=== PATIENT | female | born 1950 | race Caucasian/White ===

== ENCOUNTER → 2016-06-13 | Outpatient (CLI) | payer OTHER ==
--- NOTE | 2016-06-13 20:30 | REP ---
Whole body PET CT scan: New the patient has multiple mesenteric lymph nodes are recent CT abdomen and pelvis. This is 05/25/2016). Whole body PET CT scan is performed from skull base to the upper thighs. There are no comparison PET CT scans. Neck and supraclavicular areas: There are no hypermetabolic foci. Chest: There are no hypermetabolic foci. Abdomen, pelvis and upper thighs: There is a hypermetabolic focus along the anterior peritoneum just superior and right lateral to the umbilicus along the posterior medial margin of the right rectus abdominus muscle, with a standard uptake value of 7.4, compatible with neoplasm. This may represent a peritoneal implant. There is a small hypermetabolic focus in the right lower quadrant of the pelvis involving a tubular structure within maximal standard uptake value measuring 9.7, compatible with neoplasm. This uptake could be within the appendix, right fallopian tube or a loop of small bowel. There are no other hypermetabolic foci in the abdomen and pelvis or thighs. The study is performed with 8.3 mCi of F 18 FDG. Signed by Fran Villalobos MD 06/13/2016 08:17 P
== END | disposition home or self-care (01) ==
LOC: M RAD 14:31
PROVIDERS: ATTEND Internal Medicine
DX: C85.16 Unspecified B-cell lymphoma, intrapelvic lymph nodes (principal)
CPT/HCPCS: 78815; A9552

== ENCOUNTER → 2016-06-15 | Outpatient (REF) | payer OTHER ==
[2016-06-15 13:06] LABS: AMYLASE 34 U/L (25-115); GAMMA GLUTAMYLTRANSPEPTIDASE 16 U/L (5-55)
[2016-06-15 13:20] LABS: INR 0.92
[2016-06-15 13:33] LABS: CARCINOEMBRYONIC ANTIGEN < 0.5 NG/ML (<2.5)
== END | disposition home or self-care (01) ==
LOC: M LAB REF 12:47
PROVIDERS: ATTEND Internal Medicine Medical Oncology
DX: I88.0 Nonspecific mesenteric lymphadenitis (principal)

== ENCOUNTER → 2016-06-26 | Outpatient (CLI) | payer OTHER ==
[~2016-06-26] MED LIST: ACETAMINOPHEN 325 MG TAB As Ordered ONE; LIDOCAINE 1% MDV 20ML VIAL As Ordered ONE
--- NOTE | 2016-06-26 19:32 | REP ---
ULTRASOUND GUIDED RIGHT ABDOMINAL MESENTERIC NODULE BIOPSY: The procedure was performed under the direct supervision of Dr. Valladares. The patient has a history of a hypermetabolic focus along the anterior peritoneum just superior and right lateral to the umbilicus seen on a previous PET scan dated 06/13/2016. The risks and benefits of the procedure were explained to the patient and informed consent was obtained. The nodule was localized ultrasound guidance. The skin was prepped and draped in a sterile fashion. 1% Lidocaine was used as a local anesthetic. Using ultrasound guidance a 19/20-gauge coaxial needle biopsy system was inserted and advanced into the nodule. 6 core biopsy samples were obtained and sent to the lab. The patient tolerated the procedure well and there were no immediate complications. After the appropriate amount of monitored convalesce the patient was discharged from the department. Reviewed by NIKO Fletcher 06/27/2016 02:10 PEdited and Signed by Clemente Valladares MD 06/27/2016 02:25 P
== END ==
LOC: M RADPRO 09:03
PROVIDERS: ATTEND Internal Medicine
DX: R59.0 Localized enlarged lymph nodes (principal)

== ENCOUNTER → 2016-07-12 | Outpatient (REF) | payer OTHER | LOC: M LAB REF 13:19 | PROVIDERS: ATTEND Internal Medicine Medical Oncology | DX: C82.93 Follicular lymphoma, unspecified, intra-abdominal lymph nodes (principal); C85.10 Unspecified B-cell lymphoma, unspecified site; R19.09 Other intra-abdominal and pelvic swelling, mass and lump ==

== ENCOUNTER → 2016-07-19 | Outpatient (CLI) | payer OTHER ==
--- NOTE | 2016-07-21 10:58 | ECHO ---
DATE OF PROCEDURE: 07/19/2016 REFERRING PHYSICIAN: Ace Molina MD PATIENT LOCATION: Outpatient REASON FOR ECHOCARDIOGRAM: Chemotherapy drug monitoring. 2D MEASUREMENTS: IVS: 1.0 cm LV: 4.3 cm LVPW: 0.9 cm LA: 2.5 cm Aorta: 3.4 cm DOPPLER MEASUREMENTS: Peak velocity across the aortic valve: 1.0 m/s Peak velocity across the LVOT: 0.81 m/s Mitral E: 0.41, Mitral A: 0.51, with a ratio of 0.8 2D COMMENTS: 1. Normal left ventricular size, wall thickness and normal global left ventricular systolic function with an estimated left ventricular ejection fraction (LVEF) of 60 to 65%. 2. Normal left atrium. Normal right atrium and right ventricle. There was an echogenic structure noted in the right atrium of about 1.7 x 1.0 cm from unclear etiology, but may represent a thrombus attached to an IV access port if any, or a vegetation. 3. The atrial septum appeared to be normal without evidence of defect or shunt. 4. Normal aortic root. 5. Small pericardial effusion noted, no evidence of cardiac tamponade. 6. Normal aortic valve. Mildly calcified mitral annulus with normal anterior mitral valve leaflet motion. Normal tricuspid valve and pulmonic valve. The proximal pulmonary artery branches were not well visualized. 7. The inferior vena cava was not visualized. DOPPLER: Only trace mitral regurgitation detected. Abnormal relaxation pattern was noted across the mitral valve leaflets as well as the mitral valve annulus consistent with a delayed relaxation. IMPRESSION: 1. Normal global left ventricular systolic function. There are some features of left ventricular diastolic dysfunction, grade 1. 2. Mitral annulus calcification with trace mitral regurgitation. 3. Small pericardial effusion noted, no evidence of cardiac tamponade. 4. An echogenic structure was noted in the right atrium that could represent as mentioned above a thrombus or a vegetation, or a small tumor and therefore patient will benefit from a transesophageal echocardiogram for further evaluation.
== END ==
LOC: M CARPUL 10:57
PROVIDERS: ATTEND Internal Medicine Medical Oncology
DX: Z79.899 Other long term (current) drug therapy (principal)

== ENCOUNTER → 2016-07-25 | Outpatient (REF) | payer OTHER ==
[2016-07-25 14:34] LABS: URIC ACID 4.2 MG/DL (2.6-6.0)
[2016-07-25 14:44] LABS: HEPATITIS B SURFACE ANTIBODY NEGATIVE (POSITIVE)
== END ==
LOC: M LAB REF 13:14
PROVIDERS: ATTEND Internal Medicine Medical Oncology
DX: C85.90 Non-Hodgkin lymphoma, unspecified, unspecified site (principal); Z11.59 Encounter for screening for other viral diseases

== ENCOUNTER → 2016-08-13 | Outpatient (REF) | payer OTHER | LOC: M LAB REF 12:54 | PROVIDERS: ATTEND Internal Medicine | DX: R39.15 Urgency of urination (principal) ==

== ENCOUNTER → 2016-08-23 | Outpatient (REF) | payer OTHER ==
[~2016-08-23] MED LIST changes: -ACETAMINOPHEN 325 MG TAB As Ordered ONE; +ATOR1TAB19 PO; +BIOT10005 PO; +CALTCHW5 PO; +GAS-80CH PO; -LIDOCAINE 1% MDV 20ML VIAL As Ordered ONE; +LISI-538 PO; +METO-207 PO; +MIRA3350 PO; +OMEP40CA2 PO; +ONDA4TAB6 PO; +PROC10TA PO; +PROC25SU24 PO; +PROM25TA PO; +VITA-121 PO; +XANA0.25 PO
[2016-08-23 19:13] LABS: INR 0.96
== END ==
LOC: M LAB REF 16:39
PROVIDERS: ATTEND Internal Medicine Medical Oncology
DX: C82.90 Follicular lymphoma, unspecified, unspecified site (principal)

== ENCOUNTER 2016-08-25 11:53 | Inpatient (IN) | payer OTHER ==
[~2016-08-25] VITALS: Ht 165.1 cm; Wt 57.9 kg
[2016-08-25] MEDS: MIRALAX *UNIT DOSE* 17GM PACKET PO SCH (09:00)
[2016-08-25] MEDS: VITAMIN D 1,000 INTERNATIONAL UNITS TABLET PO SCH (09:00)
[2016-08-25] MEDS ORDERED: NS 1,000 ML IV SCH (12:25)
[2016-08-25] MEDS ORDERED: ONDANSETRON 4MG/2ML VIAL (J2405) IV ONE (12:30)
[2016-08-25 12:51] LABS: DIFF SLIDE NUMBER 114; MEAN CORPUSCULAR HEMOGLOBIN 32.3 pg (27.0-33.0); MEAN CORPUSCULAR VOLUME 94.9 fl (80.0-96.0); PLATELET COUNT, AUTOMATED 312 k/mm3 (150-450); RED CELL DISTRIBUTION WIDTH 12.6 % (11.5-14.5)
[2016-08-25 12:54] LABS: WHITE BLOOD COUNT 36.9 K/mm3 (4.0-10.0)
[2016-08-25] MEDS ORDERED: ALPRAZolam 0.25 MG TAB PO ONE (13:00)
[2016-08-25 13:05] LABS: BANDS 8 % (< 11); TOXIC VACUOLATION 1+
[2016-08-25 13:09] LABS: ALKALINE PHOSPHATASE 75 U/L (45-117); ALT/SGPT 20 U/L (12-78); ANION GAP 10 MEQ/L (8-16); AST/SGOT 17 U/L (15-37); BILIRUBIN,TOTAL 0.5 MG/DL (0.2-1.0); BLOOD UREA NITROGEN 13 MG/DL (7-18); CALCIUM LEVEL 8.8 MG/DL (8.8-10.2); CARBON DIOXIDE LEVEL 27 MEQ/L (21-32); CHLORIDE LEVEL 98 MEQ/L (98-107); GLOMERULAR FILTRATION RATE 59.2 (>45); GLUCOSE, FASTING 90 MG/DL (80-110); POTASSIUM SERUM 3.6 MEQ/L (3.5-5.1); SODIUM LEVEL 135 MEQ/L (136-145)
[2016-08-25] MEDS ORDERED: VITA-121 PO (13:09)
[2016-08-25] MEDS ORDERED: ATOR1TAB19 PO (13:09)
[2016-08-25] MEDS ORDERED: LISI-538 PO (13:09)
[2016-08-25] MEDS ORDERED: ONDA4TAB6 PO (13:09)
[2016-08-25] MEDS ORDERED: METO-207 PO (13:09)
[2016-08-25] MEDS ORDERED: XANA0.25 PO (13:09)
[2016-08-25] MEDS ORDERED: OMEP40CA2 PO (13:09)
[2016-08-25] MEDS ORDERED: CALTCHW5 PO (13:09)
[2016-08-25] MEDS ORDERED: PROC25SU24 PO (13:09)
[2016-08-25] MEDS ORDERED: BIOT10005 PO (13:09)
[2016-08-25 13:10] LABS: ALBUMIN 3.5 GM/DL (3.2-5.2); ALBUMIN/GLOBULIN RATIO 0.97 (1.00-1.93); BILIRUBIN,DIRECT < 0.1 MG/DL (0.0-0.2); TOTAL PROTEIN 7.1 GM/DL (6.4-8.2)
[2016-08-25] MEDS ORDERED: GASTROGRAFIN SOLUTION 30ML (Q9963) As Ordered ONE (13:22)
[2016-08-25] MEDS: GASTROGRAFIN SOLUTION 30ML PO ONE ×2 (13:30→14:09)
[2016-08-25] MEDS ORDERED: GASTROGRAFIN SOLUTION 30ML (Q9963) PO ONE (14:00)
[2016-08-25] MEDS ORDERED: ISOVUE-370 76% 100ML VIAL (Q9967) As Ordered ONE (14:47)
--- NOTE | 2016-08-25 15:22 | REP ---
Clinical: Epigastric and left lower quadrant pain. Technique: Axial contrast enhanced images from the lung bases to the pubic symphysis using oral and 100 ml Isovue 370 intravenous contrast material with coronal and sagittal re-formations. Comparison: 05/25/2016, 04/26/2016. Findings: Lung bases are clear. Visualized heart and pericardium normal. Liver, spleen, pancreas, bilateral adrenal glands and kidneys are within normal limits. The patient is status post cholecystectomy. The enteric system is without obstruction or acute inflammatory process. Pelvis demonstrates normal bladder and mildly prominent heterogeneous uterus and adnexa which may reflect underlying myomatous changes. No ascites. No free air. No adenopathy. Vasculature is normal. Musculoskeletal structures demonstrate age-related degenerative changes without focal osseous abnormality. Impression: 1. No acute intra-abdominal or pelvic pathology appreciated. 2. No free fluid. No adenopathy. 3. Mildly prominent heterogeneous uterus may reflect underlying ill-defined myomatous changes. Signed by Zach Bell MD 08/25/2016 03:14 P
[2016-08-25] MEDS ORDERED: MIRA3350 PO (16:01)
[2016-08-25] MEDS ORDERED: GAS-80CH PO (16:01)
[2016-08-25] MEDS ORDERED: PROC10TA PO (16:01)
[2016-08-25] MEDS: NS 1,000 ML IV SCH (17:20)
[2016-08-25] MEDS ORDERED: SIMETHICONE 80 MG CHEW TAB PO PRN (17:30)
[2016-08-25] MEDS ORDERED: ALPRAZolam 0.25 MG TAB PO PRN (17:30)
[2016-08-25] MEDS ORDERED: ACETAMINOPHEN TAB 650MG DOSE (2X325MG) PO PRN (17:30)
[2016-08-25] MEDS ORDERED: ONDANSETRON 4MG/2ML VIAL (J2405) IV PRN (17:30)
[2016-08-25] MEDS ORDERED: METOCLOPRAMIDE INJ 10MG/2ML VIAL (J2765) IV PRN (17:30)
--- NOTE | 2016-08-25 18:38 | ECGEPIP ---
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
[2016-08-25 18:42] VITALS: BP 160/80
--- NOTE | 2016-08-25 19:00 | HPEPDOC ---
General Date of Admission Aug 25, 2016 at 17:55 Primary Care Physician: GILBERTO TAYLOR DO Attending Physician: GUSTAVO PHILIP DO Chief Complaint The patient is a 65-year-old female admitted with a reason for visit of Chemotherapy Induced N/V. Source: Patient, Family Exam Limitations: Other (dizziness) Timing/Duration: Day(s) (3) Severity: Moderate Associated Symptoms: Chills, Loss of appetite, Nausea, Vomiting History of Present Illness PRIMARY CARE PROVIDER: Dr. Gilberto Taylor [facility] internists [facility] Nurse Practitioners on [facility] Oncology group at [facility] Dr. 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 States she had her first chemotherapy treatment on Saturday and was fine after she came back home. On , she had her second treatment for chemotherapy, she came home, ate something, immediately went to bed after taking Zofran and prochlorperazine.. However, she began to have uncontrollable vomiting despite the anti-emetics that she had taken. States that she had 5-6 episodes of vomiting in a row at a time and this occurred at least 3 times on . On Saturday, she was vomiting all day and all night every 2-3 hours for 3-4 times at a time. She did not sleep well on Saturday night due to vomiting. Last time that she had vomited was this morning which was only 1 episode today. States that her stomach hurts from forceful vomiting. She also admits to a >30 pounds weight loss recently. In addition, she admits to dry heaves and nausea at this time. She admits to a 3 pound weight loss since Saturday. Then, she came to [facility] ED around noon to be evaluated. Upon review of systems, patient denies fever, headache, sore throat, mucus, blurred vision, chest pain, abdominal pain, diarrhea, hematochezia, hematuria urea, swelling, rashes, lesions. Admits to chills from lymphoma and shaking, greater than 30 pound weight loss, weakness, fatigue, loss of appetite, dizziness when sitting up or standing up, runny nose 1 month, sneezing, itching in the back due to lymphoma, constipation, and shortness of breath. Admits to having to strain due to constipation. Admits to dizziness when getting up slowly from a lying position. Admits to nausea when moving and talking a lot. Admits to a one-year history of shortness of breath when getting out of bed and climbing up the stairs. She also states that shortness of breath is from fatigue from lymphoma. She also admits to a urinary tract infection recently for which she has just finished 10 days of an antibiotic that she notes to be nitrofurantoin. ALLERGIES: Codeine: Abdominal pain and vomiting Morphine sulfate: Severe vomiting and abdominal pain PAST MEDICAL HISTORY: Non-Hodgkin's lymphoma status post chemotherapy on 08/22 and 08/23: Cancer at right side of pelvis and underneath right rib cage as per patient Left breast DCIS with radiation but no chemotherapy Hypertension Hyperlipidemia Moderate sleep apnea not on CPAP due to noncompliance Suspicious mole with abnormal features which needs to be excised Broken left collarbone PAST SURGICAL HISTORY/PROCEDURES: Left breast lumpectomy Cholecystectomy Appendectomy Back surgery-infusion Cone biopsy negative Colonoscopy 2003, 11/16/2011: sigmoid diverticulosis and non-bleeding internal hemorroids Abdominal and bone marrow biopsy Hx of Echocardiogram 07/19/26: Normal LVEF and function, grade 1 diastolic dysfunction, and echogenic structure in R atrium that could represent thrombus or vegetation or small tumor. MEDICATIONS: Please see below. SOCIAL HISTORY: Lives at home with . 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 Lifelong nonsmoker EtOH: Use is socially drink, quit March 2016 No illicit drug use No exposure to asbestos dose No exposure to tuberculosis No pets FAMILY HISTORY: 1 brother, 5 sisters, 3 sons Father: Alive 90 years, CHF, hypertension, history of prostate cancer, thyroidectomy Mother: Alive 88 years, osteoarthritis, Xigris disease, hypertension Youngest sister: Diagnosed with breast cancer at age 47 Another sister: Minor thalassemia, atrial fibrillation, fibromyalgia, COPD Sister: Celiac disease, hypertension 2 sisters: Minor thalassemia 2 sisters: Fibromyalgia One sister with heart problems Sister with celiac disease No family history of ovarian or colon cancer. Son: Non-cancerous tumor on thoracic spine age 23 CODE STATUS: FULL CODE REVIEW OF SYSTEMS: All other review of systems were negative except for those stated in HPI above. PHYSICAL EXAMINATION: Vitals: T: 97.2, BP: 145/79, RR: 18, P: 82, O2 Saturation: 96% room air General: Pleasant and cooperative adult female lying in bed comfortably in no acute distress. Non-toxic and non-ill appearing. HEENT: Head: normocephalic, atraumatic. Eyes: sclera are nonicteric. Nose: No external lesions Throat: no pharyngeal erythema or exudates, moist buccal mucosa Neck: Supple. No cervical lymphadenopathy bilaterally. No thyromegaly. Respiratory: clear to auscultation bilaterally with no wheezes, rales, or rhonchi. Cardiovascular: regular rate and rhythm, with no murmurs, rubs or gallops. Abdomen: soft, nontender, nondistended, no hepatosplenomegaly appreciated. Bowel sounds present. Extremities: No lower extremity edema bilaterally. Neurological: No focal neurologic deficits appreciated bilaterally. Integumentary: Positive brown macular mole on the left upper back. No other rashes or lesions noted. Vascular: +2 radial and dorsalis pedis pulses palpable bilaterally. LABORATORY DATA: Please see below. White blood cell count: 36.9 Hemoglobin: 11.8 Hematocrit: 34.8 Sodium: 135 Neutrophils: 86 Luis Angel neutrophils: 8 Lymphocytes: 3 Toxic vacuolation: 1+ Sodium: 135 Lactic acid: 1.3 MICROBOIOLOGY: Blood cultures and urine cultures pending. ELECTROCARDIOGRAM: Sinus rhythm with nonspecific T-wave abnormality. Ventricular rate: 70 bpm RI interval: 193 ms QRS duration: 94 ms QTc interval: 430 ms RADIOLOGY: CT scan of the abdomen/pelvis with IV and oral contrast: No acute intra- abdominal or pelvic pathology. No free fluid. No adenopathy. Mildly prominent heterogeneous uterus may reflect underlying ill-defined mild myomatous changes. 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 She is admitted for unrelenting and uncontrollable vomiting and intolerance to by mouth intake 3 days most likely secondary to recent chemotherapy. Patient also has leukocytosis. PLAN: Intractable nausea/vomiting related to chemotherapy: Admitted to the medical surgical floor. We'll continue with supportive treatment: IV fluids with normal saline at 150 mL per hour. Anti-medics: IV Zofran, IV Reglan, and Phenergan IV. We'll hold all blood pressure medications at this time with hold parameters: metoprolol and lisinopril. Leukocytosis: White blood cell count of 36.9. We'll obtain blood cultures, urinalysis, and urine cultures and sensitivity. Patient is afebrile at this moment. There are no obvious signs of infection. This could be secondary to stress of chemotherapy treatment. Of note, patient reports she had a recent urinary tract infection which was treated with nitrofurantoin for 10 days and she just finished this. Non-Hodgkin's lymphoma: Continue current management. As per Dr. Molina. Hypertension: Continue BP medications with hold parameters of SBP <110 and HR < 60 as patient having volume loss through vomiting and her pressures are soft. Hyperlipidemia: Continue atorvastatin. History of breast cancer: Patient states that she had a mammogram in February 2016 visit does not show anything. In addition, she had gone to have PET scan [facility] which was negative. In addition, she had gone to [facility] for second opinion who she states recommended for her to have another follow-up. She has an appointment on September 17 for a 3 day mammography at [facility] for ultrasound and 3D mammogram there. Far as per recommendations for PCP and Dr. Molina. History of echocardiogram 07/19/2016 for chemotherapy drug monitoring: Normal left ventricular size, wall thickness, normal global left ventricular systolic function with estimated left ventricular ejection fraction of 60-65%. In addition, it showed left ventricular grade 1 diastolic dysfunction and trace mitral regurgitation. It also noted an echogenic structure in the right atrium that could represent thrombus or vegetation or a small tumor and therefore the patient may benefit from a transesophageal echocardiogram for further evaluation. Upon record review, it does not seem the patient had a TTE and this should be considered while patient is hospitalized. History of colonoscopy 11/16/[address] Chano Glass: Nonbleeding internal hemorrhoids found during retroflexion and were small. A few mouth small mouth diverticula were found in the rectal sigmoid colon and in the sigmoid colon. Exam otherwise without abnormality. Diverticulosis in the sigmoid colon. High fiber diet was recommended and repeat colonoscopy in 5-10 years for surveillance. Continue home medications. DVT prophylaxis: Lovenox 40 mg subcutaneous daily. FULL CODE STATUS Immunizations as per protocol. My preceptor for this patient encounter was Dr. Gustavo Philip, and was physically present in the building during the encounter and was fully available. As needed, all aspects of the patient interview, examination, medical decision making process, and medical care plan development were reviewed and approved by the preceptor. Preceptor is aware and concurs with the plan as stated in the body of this note and will attest to such by his/her cosignature. Home Medications Scheduled (Caltrate 600+D 600-400 mg-Unit) 1 Chw Chw 1 TAB PO BID (Reported) Atorvastatin Calcium (Atorvastatin Calcium) 10 Mg Tab 10 MG PO QHS (Reported) Biotin (Vitamin H) (Biotin) 1,000 Mcg Tab 1,000 MCG PO DAILY (Reported) Cholecalciferol (Vitamin D-3) 1,000 Unit Tab 1,000 UNIT PO DAILY (Reported) Lisinopril (Lisinopril) 20 Mg Tab 20 MG PO DAILY (Reported) Metoprolol Succinate (Metoprolol Succinate ER) 50 Mg Tab 50 MG PO DAILY ( Reported) Omeprazole (Omeprazole) 40 Mg Cap 40 MG PO QHS (Reported) Scheduled PRN Alprazolam (Xanax) 0.25 Mg Tab 0.25 MG PO ASDIRECTED PRN PRN ANXIETY/AGITATION ( Reported) PRIOR TO SCANS Ondansetron (Ondansetron Odt) 4 Mg Tab 4 MG PO Q6H PRN PRN NAUSEA (Reported) Polyethylene Glycol (Miralax) 1 Pow Pow 17 GM PO DAILY PRN PRN CONSTIPATION ( Reported) Prochlorperazine Maleate (Prochlorperazine Maleate) 10 Mg Tab 10 MG PO Q8H PRN PRN NAUSEA (Reported) Simethicone (Gas-X) 80 Mg Chw 80 MG PO PRN PRN PRN GAS PAIN (Reported) Allergies Coded Allergies: Codeine (Verified Allergy, Unknown, 08/29/12) Morphine (Verified Allergy, Unknown, 08/29/12) Vital Signs As above. Laboratory Data Labs 24H Laboratory Tests 2 08/25/16 12:37: Aspartate Amino Transf (AST/SGOT) 17, Alanine Aminotransferase (ALT/SGPT) 20, Alkaline Phosphatase 75, Total Bilirubin 0.5, Direct Bilirubin < 0.1, Albumin 3.5, Albumin/Globulin Ratio 0.97L, Anion Gap 10, Band Neutrophils 8, Calcium Level 8.8, Creatine Kinase MB 1.0, Creatine Kinase MB Relative Index 2.77, Glomerular Filtration Rate 59.2, Lactic Acid Level 1.3, Lipase 59L, Lymphocytes (Manual) 3L, Monocytes (Manual) 3, Neutrophils 86H, Platelet Estimate NORMAL, Red Blood Cell Morphology NORMAL, Total Creatine Kinase 36, Total Protein 7.1, Toxic Vacuolation 1+, Troponin I < 0.02 CBC/BMP Laboratory Tests 08/25/16 12:37 Red Blood Count 3.66 L, Mean Corpuscular Volume 94.9, Mean Corpuscular Hemoglobin 32.3, Mean Corpuscular Hemoglobin Concent 34.0, Red Cell Distribution Width 12.6 Plan / VTE VTE Prophylaxis Ordered?: Yes (lovenox sc 40 mg daily) Plan Disposition Attending Note: Patient seen and independently examined. Discussed at length with resident regarding treatment plan. Agree with plan outlined above. FRANCISCO PATEL OGME-1 Aug 25, 2016 19:00 GUSTAVO PHILIP DO Aug 26, 2016 13:22
[2016-08-25] MEDS: OMEPRAZOLE 20 MG CAP PO SCH (21:00)
[2016-08-25] MEDS: ATORVASTATIN 10 MG TAB PO SCH (21:00)
[2016-08-25] MEDS: LISINOPRIL 20 MG TAB PO SCH (21:02)
[2016-08-25] MEDS: ENOXAPARIN 40 MG/0.4 ML SYRINGE (J1650) SC SCH (21:03)
[2016-08-25] MEDS: METOPROLOL SUCC (TopROL XL) 50MG **XL** TAB PO SCH (21:03)
[2016-08-25 22:00] VITALS: BP 128/70
[2016-08-26] MEDS: PROMETHAZINE INJ 25 MG/ML VIAL (J2550) IM PRN ×2 (00:04→08:31)
[2016-08-26] MEDS: NS 1,000 ML IV SCH ×4 (01:54→20:40)
[2016-08-26 06:00] VITALS: BP 127/73
[2016-08-26 06:37] LABS: MEAN CORPUSCULAR HEMOGLOBIN 32.5 pg (27.0-33.0); MEAN CORPUSCULAR HGB CONC 33.8 g/dl (32.0-36.5); MEAN CORPUSCULAR VOLUME 96.2 fl (80.0-96.0); RED CELL DISTRIBUTION WIDTH 12.8 % (11.5-14.5); WHITE BLOOD COUNT 29.7 K/mm3 (4.0-10.0)
[2016-08-26 06:46] LABS: ANION GAP 7 MEQ/L (8-16); BLOOD UREA NITROGEN 9 MG/DL (7-18); CALCIUM LEVEL 7.9 MG/DL (8.8-10.2); CARBON DIOXIDE LEVEL 28 MEQ/L (21-32); CHLORIDE LEVEL 104 MEQ/L (98-107); CREATININE FOR GFR 0.84 MG/DL (0.55-1.02); GLOMERULAR FILTRATION RATE > 60.0 (>45); GLUCOSE, FASTING 68 MG/DL (80-110); POTASSIUM SERUM 3.4 MEQ/L (3.5-5.1); SODIUM LEVEL 139 MEQ/L (136-145)
[2016-08-26] MEDS: MIRALAX *UNIT DOSE* 17GM PACKET PO SCH (08:31)
[2016-08-26] MEDS: VITAMIN D 1,000 INTERNATIONAL UNITS TABLET PO SCH (08:31)
[2016-08-26] MEDS: ENOXAPARIN 40 MG/0.4 ML SYRINGE (J1650) SC SCH (08:32)
[2016-08-26] MEDS: METOPROLOL SUCC (TopROL XL) 50MG **XL** TAB PO SCH (08:32)
[2016-08-26] MEDS: LISINOPRIL 20 MG TAB PO SCH (08:32)
--- NOTE | 2016-08-26 12:37 | IPNPDOC ---
Subjective Date Seen The patient was seen on 08/26/16. Subjective Chief Complaint/HPI The patient is a 65-year-old female admitted with a reason for visit of Chemotherapy Induced N/V. Constitutional: Denies: Chills, Fever, Night Sweats Gastrointestinal: Reports: Nausea Objective Physical Examination General Exam: Positive: Alert, No Acute Distress ENT Exam: Positive: Atraumatic, Mucous membr. moist/pink Chest Exam: Positive: Clear to auscultation, Normal air movement Heart Exam: Positive: Normal S1, Normal S2, Rate Normal, Regular Rhythm, Negative: Murmurs, Rubs Abdomen Exam: Positive: Normal bowel sounds, Soft, Negative: Hepatospenomegaly, Tenderness Extremity Exam: Positive: Normal pulses, Negative: Clubbing, Cyanosis, Edema Assessment /Plan Problems (1) Chemotherapy induced nausea and vomiting Status: Acute Problem Text: * continue Phenergan * zofran is not helping pt's symptom (2) Lymphoma, non-Hodgkin's Status: Acute (3) HTN (hypertension) Status: Chronic Response to Treatment: Stable (4) HLD (hyperlipidemia) Status: Chronic Response to Treatment: Stable (5) Hypokalemia Status: Acute Plan/VTE VTE Prophylaxis Ordered?: Yes (lovenox sc 40 mg daily) VS[facility] Vital Signs/I&O Vital Signs Date Time Temp Pulse Resp B/P Pulse Ox O2 Delivery O2 Flow Rate FiO2 08/26/16 08:32 127/73 08/26/16 06:00 99.8 96 18 97 Room Air I&O- Last 24 Hours up to 6 AM 08/26/16 06:00 Intake Total 300 ml Output Total 400 ml Balance -100 ml Laboratory Data 24H LABS Laboratory Tests 2 08/25/16 12:37: Aspartate Amino Transf (AST/SGOT) 17, Alanine Aminotransferase (ALT/SGPT) 20, Alkaline Phosphatase 75, Total Bilirubin 0.5, Direct Bilirubin < 0.1, Albumin 3.5, Albumin/Globulin Ratio 0.97L, Anion Gap 10, Band Neutrophils 8, Calcium Level 8.8, Creatine Kinase MB 1.0, Creatine Kinase MB Relative Index 2.77, Glomerular Filtration Rate 59.2, Lactic Acid Level 1.3, Lipase 59L, Lymphocytes (Manual) 3L, Monocytes (Manual) 3, Neutrophils 86H, Platelet Estimate NORMAL, Red Blood Cell Morphology NORMAL, Total Creatine Kinase 36, Total Protein 7.1, Toxic Vacuolation 1+, Troponin I < 0.02 08/26/16 06:12: Anion Gap 7L, Calcium Level 7.9L, Glomerular Filtration Rate > 60.0, Blood Urea Nitrogen 9, Creatinine 0.84, Sodium Level 139, Potassium Level 3.4L, Chloride Level 104, Carbon Dioxide Level 28 CBC/BMP Laboratory Tests 08/25/16 12:37 Red Blood Count 3.66 L, Mean Corpuscular Volume 94.9, Mean Corpuscular Hemoglobin 32.3, Mean Corpuscular Hemoglobin Concent 34.0, Red Cell Distribution Width 12.6 08/26/16 06:12 Red Blood Count 3.10 L, Mean Corpuscular Volume 96.2 H, Mean Corpuscular Hemoglobin 32.5, Mean Corpuscular Hemoglobin Concent 33.8, Red Cell Distribution Width 12.8, Calcium Level 7.9 L Microbiology Microbiology 08/25/16 Blood Culture, Received Pending TEX OJEDA DO Aug 26, 2016 12:37
[2016-08-26] MEDS ORDERED: POTASSIUM CHLORIDE 10 MEQ SR TABLET PO ONE (12:45)
[2016-08-26] MEDS ORDERED: PROMETHAZINE 25 MG TAB PO PRN (13:00)
[2016-08-26] MEDS: ATORVASTATIN 10 MG TAB PO SCH (20:40)
[2016-08-26] MEDS: OMEPRAZOLE 20 MG CAP PO SCH (20:40)
[2016-08-26 22:00] VITALS: BP 128/59
[2016-08-27] MEDS: NS 1,000 ML IV SCH (02:40)
[2016-08-27 06:00] VITALS: BP 116/55
[2016-08-27 07:20] LABS: MEAN CORPUSCULAR HEMOGLOBIN 31.7 pg (27.0-33.0); MEAN CORPUSCULAR HGB CONC 32.8 g/dl (32.0-36.5); MEAN CORPUSCULAR VOLUME 96.8 fl (80.0-96.0); RED CELL DISTRIBUTION WIDTH 13.1 % (11.5-14.5); WHITE BLOOD COUNT 29.3 K/mm3 (4.0-10.0)
[2016-08-27 07:34] LABS: ANION GAP 8 MEQ/L (8-16); BLOOD UREA NITROGEN 7 MG/DL (7-18); CALCIUM LEVEL 7.6 MG/DL (8.8-10.2); CARBON DIOXIDE LEVEL 27 MEQ/L (21-32); CHLORIDE LEVEL 107 MEQ/L (98-107); CREATININE FOR GFR 0.74 MG/DL (0.55-1.02); GLOMERULAR FILTRATION RATE > 60.0 (>45); GLUCOSE, FASTING 63 MG/DL (80-110); POTASSIUM SERUM 3.9 MEQ/L (3.5-5.1); SODIUM LEVEL 142 MEQ/L (136-145)
[2016-08-27 08:35] VITALS: BP 116/55
[2016-08-27] MEDS: LISINOPRIL 20 MG TAB PO SCH (08:35)
[2016-08-27] MEDS: METOPROLOL SUCC (TopROL XL) 50MG **XL** TAB PO SCH (08:35)
[2016-08-27] MEDS ORDERED: LIDOCAINE W/EPINEPHRINE 1% 20ML VIAL As Ordered ONE (12:55)
[2016-08-27] MEDS ORDERED: LIDOCAINE 2% MDV 20 ML VIAL As Ordered ONE (12:55)
[2016-08-27] MEDS ORDERED: SODIUM BICARBONATE 8.4% INJ 50MEQ 50 ML VIAL As Ordered ONE (12:55)
[2016-08-27] MEDS ORDERED: ceFAZolin 1GM INJ (J0690) As Ordered ONE (12:57)
[2016-08-27] MEDS ORDERED: PROM25TA PO (13:50)
[2016-08-27] MEDS ORDERED: ONDANSETRON 4MG/2ML VIAL (J2405) IV PRN (14:45)
[2016-08-27] MEDS ORDERED: LR 1,000 ML IV SCH (14:45)
[2016-08-27] MEDS ORDERED: fentaNYL 100 MCG/2 ML INJECTION (J3010) IV PRN (14:45)
[2016-08-27 16:00] VITALS: BP 156/70
--- NOTE | 2016-08-27 16:19 | REPKIM ---
CLINICAL HISTORY: Lymphoma. The referring service has asked a chest infuse-a- port placement for chemotherapy. PROCEDURE PERFORMED: Placement of totally implantable venous access device under combined sonographic and fluoroscopic guidance INTERVENTIONALIST: Suzan John MD CONSENT: The risks, benefits and alternatives to the procedure were explained to the patient and informed written consent was obtained. MEDICATIONS: Local Lidocaine and Ancef 1 gm IV SEDATION: Sedation and analgesia was provided by the Anesthesiology Dept. EBL: 5 mL FLUORO TIME: 0.3 minutes DEVICE USED: [place] 8-Malaysian, Single-Lumen Lot#[id number] PROCEDURE/FINDINGS: The patient was brought to the interventional radiology suite and was positioned supine on the table. Time out procedure was performed. Real time ultrasound was used and permanent image stored. The right IJ vein is patent and compressible. Using ultrasound guidance the internal jugular vein was accessed with a micropuncture needle, after infiltration of the skin and deep tissues with local anesthetic. A peel-away sheath was placed. The catheter tip was inserted via the sheath under controlled respiration. The sheath was removed, and the catheter was flushed with heparinized saline and clamped. Next attention was turned to creation of a subcutaneous pocket for the port along the upper chest. The overlying skin and deep tissues were infiltrated with local anesthetic. A transverse skin incision was made long enough to accommodate the reservoir, and using blunt dissection a subcutaneous pocket was created. A tunnel was created from the pocket to the access site. A clamp was advanced from the pocket incision to the venous access site and used to grasp the free end of the catheter and pull it through to the pocket incision. The catheter was trimmed, attached to the reservoir, and flushed with heparinized saline. The reservoir was inserted into the pocket and secured with 2-0 absorbable sutures. The deep tissue was closed with interrupted 2-0 Vicryl suture. The skin incision was closed with a running subcuticular suture of 4-0 Vicryl. The venotomy incision was closed with 4-0 Vicryl suture. Mastisol and Steri-Strips were applied. The port was then accessed and Heparin (100 units/mL concentration) locked in the port. A sterile dressing was then applied. Post procedure chest spot film radiograph showed the tip of the catheter is at the cavoatrial junction. The patient tolerated the procedure well with no immediate complications. This procedure was performed using ultrasound and fluoroscopy. Dr. John was present. IMPRESSION: 1. The right IJ vein is patent and compressible. 2. Successful placement of right IJ chest port placement as discussed above. The chest [id number] is ready for use. cc: DO Ace Ruano MD [facility]
== END 2016-08-27 18:15 | disposition home or self-care (01) | DRG 392 ==
LOC: M ED 13:14 → M ED INP 15:37 → OBSVTOIN 17:55 → M MS5PR 18:25
PROVIDERS: ADMIT Hospitalist; ATTEND Internal Medicine
PROC: 02HV33Z Insertion of Infusion Device into Superior Vena Cava, Percutaneous Approach (ICD-10-PCS; principal; 2016-08-27)
DX: R11.2 Nausea with vomiting, unspecified (principal); C85.96 Non-Hodgkin lymphoma, unspecified, intrapelvic lymph nodes; T45.1X5A Adverse effect of antineoplastic and immunosuppressive drugs, initial encounter; I10 Essential (primary) hypertension; E78.5 Hyperlipidemia, unspecified; E87.6 Hypokalemia; K59.00 Constipation, unspecified; R53.1 Weakness; R53.83 Other fatigue; R42 Dizziness and giddiness; Z88.5 Allergy status to narcotic agent; Z85.3 Personal history of malignant neoplasm of breast; Z79.899 Other long term (current) drug therapy

== ENCOUNTER → 2016-10-05 | Outpatient (REF) | payer OTHER ==
[~2016-10-05] MED LIST changes: +IBUP40TA PO; +TYLE325T5 PO; +ZOFR20TA PO
== END ==
LOC: M LAB REF 16:29
PROVIDERS: ATTEND Internal Medicine
DX: R79.82 Elevated C-reactive protein (CRP) (principal)

== ENCOUNTER → 2017-04-10 | Outpatient (REF) | payer OTHER ==
[~2017-04-10] MED LIST changes: -BIOT10005 PO; +BIOT10008 PO; -METO-207 PO; +METO1TAB7 PO
== END ==
LOC: M LAB REF 17:49
PROVIDERS: ATTEND Surgery
DX: D22.5 Melanocytic nevi of trunk (principal)

== ENCOUNTER → 2017-04-17 | Outpatient (REF) | payer OTHER | LOC: M LAB REF 15:34 | PROVIDERS: ATTEND Surgery | DX: D48.5 Neoplasm of uncertain behavior of skin (principal) ==

== ENCOUNTER → 2017-05-29 | Outpatient (REF) | payer OTHER ==
[2017-05-29 14:04] LABS: CREATININE FOR GFR 1.05 MG/DL (0.55-1.02); GLOMERULAR FILTRATION RATE 55.8 (>45)
[2017-05-29 14:04] LABS: BLOOD UREA NITROGEN 23 MG/DL (7-18)
== END ==
LOC: M LABDRAW1 11:10
DX: S42.035 Nondisplaced fracture of lateral end of left clavicle (principal); X58.XXXS Exposure to other specified factors, sequela
CPT/HCPCS: 82565

== ENCOUNTER 2017-08-16 19:44 | Emergency (ER) | payer OTHER ==
[2017-08-16 20:18] LABS: BASO % 0.5 % (0.0-1.0); EOS # 0.1 10^3/uL (0.0-0.50); EOS % 2.2 % (0.0-3.0); HEMATOCRIT 37.7 % (36.0-47.0); HEMOGLOBIN 13.2 g/dl (12.0-16.0); LYMPH # 0.9 10^3/uL (1.5-4.5); LYMPH % 21.6 % (24.0-44.0); MEAN CORPUSCULAR HEMOGLOBIN 33.8 pg (27.0-33.0); MEAN CORPUSCULAR VOLUME 96.4 fl (80.0-96.0); MONO # 0.6 10^3/uL (0.0-0.8); MONO % 13.7 % (0.0-5.0); NEUTROPHILS # 2.5 10^3/uL (1.8-7.7); PLATELET COUNT, AUTOMATED 243 10^3/uL (150-450); RED BLOOD COUNT 3.91 10^6/uL (4.00-5.40); WHITE BLOOD COUNT 4.1 10^3/uL (4.0-10.0)
[2017-08-16] MEDS: METOPROLOL TART 50 MG TAB PO (20:19)
[2017-08-16] MEDS: METOPROLOL 5 MG/5 ML VIAL IV ×3 (20:20→20:43)
[2017-08-16 20:38] LABS: ANION GAP 5 MEQ/L (8-16); BLOOD UREA NITROGEN 16 MG/DL (7-18); CALCIUM LEVEL 9.4 MG/DL (8.8-10.2); CARBON DIOXIDE LEVEL 31 MEQ/L (21-32); CHLORIDE LEVEL 103 MEQ/L (98-107); CPK CREATINE PHOSPHOKINASE 149 U/L (26-192); CREATININE FOR GFR 0.97 MG/DL (0.55-1.30); GLOMERULAR FILTRATION RATE > 60.0 (>45); GLUCOSE, FASTING 98 MG/DL (70-100); SODIUM LEVEL 139 MEQ/L (136-145); TROPONIN I < 0.02 NG/ML (< 0.10)
[2017-08-16 20:39] LABS: MB/CK RELATIVE INDEX 2.01 (< OR =4)
[2017-08-17 03:10] LABS: CPK CREATINE PHOSPHOKINASE 104 U/L (26-192); MB/CK RELATIVE INDEX 1.92 (< OR =4); TROPONIN I < 0.02 NG/ML (< 0.10)
== END 2017-08-17 04:03 | disposition home or self-care (01) ==
LOC: M ED 08-17 04:03
DX: I48.0 Paroxysmal atrial fibrillation (principal); I44.0 Atrioventricular block, first degree; R00.0 Tachycardia, unspecified; I48.92 Unspecified atrial flutter; I10 Essential (primary) hypertension; Z79.899 Other long term (current) drug therapy; Z88.5 Allergy status to narcotic agent
CPT/HCPCS: 93005

== ENCOUNTER 2017-10-31 08:40 | Day surgery (SDC) | payer OTHER ==
[2017-10-31] MEDS: NS 1,000 ML IV (09:00)
[2017-10-31] MEDS ORDERED: LIDOCAINE 2% INJ 100 MG/5 ML SDV (FOR ANES.) As Ordered (09:48)
[2017-10-31] MEDS ORDERED: PROPOFOL 200 MG/20 ML VIAL As Ordered (09:48)
== END 2017-10-31 10:33 | disposition home or self-care (01) ==
LOC: M OPP 08:40
DX: Z12.11 Encounter for screening for malignant neoplasm of colon (principal); Z80.0 Family history of malignant neoplasm of digestive organs; Z86.010 Personal history of colon polyps; K57.30 Diverticulosis of large intestine without perforation or abscess without bleeding; I48.91 Unspecified atrial fibrillation; I10 Essential (primary) hypertension; E78.5 Hyperlipidemia, unspecified; K21.9 Gastro-esophageal reflux disease without esophagitis; Z85.72 Personal history of non-Hodgkin lymphomas; M19.90 Unspecified osteoarthritis, unspecified site; F41.9 Anxiety disorder, unspecified; Z78.0 Asymptomatic menopausal state; Z85.3 Personal history of malignant neoplasm of breast; Z92.3 Personal history of irradiation; G47.30 Sleep apnea, unspecified; R06.83 Snoring; Z88.5 Allergy status to narcotic agent; Z91.048 Other nonmedicinal substance allergy status; Z79.899 Other long term (current) drug therapy; Z79.01 Long term (current) use of anticoagulants; Z83.71 Family history of colonic polyps; Z80.3 Family history of malignant neoplasm of breast
CPT/HCPCS: G0105

== ENCOUNTER → 2017-11-24 | Outpatient (CLI) | payer OTHER | LOC: M WUC 15:37 | DX: M25.512 Pain in left shoulder (principal); Z87.81 Personal history of (healed) traumatic fracture | CPT/HCPCS: 73030 ==

== ENCOUNTER → 2017-12-06 | Outpatient (CLI) | payer OTHER | LOC: M WUC 10:40 | DX: M25.512 Pain in left shoulder (principal); S42.002D Fracture of unspecified part of left clavicle, subsequent encounter for fracture with routine healing | CPT/HCPCS: 73000 ==

== ENCOUNTER → 2018-03-30 | Outpatient (CLI) | payer OTHER | LOC: M SLEEP 20:00 | DX: G47.33 Obstructive sleep apnea (adult) (pediatric) (principal) | CPT/HCPCS: 95810 ==

== ENCOUNTER → 2018-05-09 | Outpatient (CLI) | payer OTHER | LOC: M SLEEP 19:40 | DX: G47.33 Obstructive sleep apnea (adult) (pediatric) (principal) | CPT/HCPCS: 95811 ==

== ENCOUNTER → 2018-07-02 | Outpatient (REF) | payer OTHER ==
[~2018-07-02] MED LIST changes: +AMLO5TAB6 PO; +CALCTAB66 PO; +METO25TA4 PO; +MULT1TAB10 PO; -PROC10TA PO; +PROC10TA4 PO; -PROM25TA PO; +PROM25TA12 PO; +VITA100067 PO; +XARE20TA PO; -ZOFR20TA PO; +ZOFR4TAB16 PO
== END ==
LOC: M LAB REF 12:52
PROVIDERS: ATTEND Internal Medicine
DX: D64.9 Anemia, unspecified (principal)

== ENCOUNTER 2018-07-09 11:33 | Emergency (ER) | payer MEDICARE, OTHER ==
[~2018-07-09] VITALS: Ht 165.1 cm; Wt 66.8 kg
[2018-07-09] MEDS ORDERED: BUSP5TA (11:58)
[2018-07-09 12:21] LABS: BASO % 0.3 % (0.0-1.0); EOS % 0.5 % (0.0-3.0); HEMATOCRIT 34.8 % (36.0-47.0); HEMOGLOBIN 11.8 g/dl (12.0-15.5); LYMPH # 0.5 10^3/uL (1.5-4.5); LYMPH % 7.5 % (24.0-44.0); MEAN CORPUSCULAR HEMOGLOBIN 32.3 pg (27.0-33.0); MEAN CORPUSCULAR HGB CONC 33.9 g/dl (32.0-36.5); MEAN CORPUSCULAR VOLUME 95.3 fl (80.0-96.0); MONO # 0.4 10^3/uL (0.0-0.8); MONO % 5.9 % (0.0-5.0); NEUTROPHILS # 5.5 10^3/uL (1.8-7.7); NEUTROPHILS % 85.6 % (36.0-66.0); PLATELET COUNT, AUTOMATED 253 10^3/uL (150-450); RED BLOOD COUNT 3.65 10^6/uL (4.00-5.40); WHITE BLOOD COUNT 6.4 10^3/uL (4.0-10.0)
--- NOTE | 2018-07-09 12:50 | REP ---
CT Head without contrast HISTORY: Syncope COMPARISON: None Areas of decreased attenuation are present in the periventricular and subcortical white matter. This represents small-vessel ischemic disease. There is no intraparenchymal hemorrhage, acute infarct, mass or midline shift. The ventricular system is normal in appearance. The cortical sulci are dilated consistent with minimal volume loss. There is no extra cerebral collection. There is no fracture. The visualized sinuses are clear. IMPRESSION: 1. Small vessel ischemic disease. 2. Minimal volume loss. Electronically Signed by Kris Irvin MD 07/09/2018 12:41 P
[2018-07-09 12:58] LABS: ALBUMIN 3.6 GM/DL (3.2-5.2); ALT/SGPT 16 U/L (12-78); BILIRUBIN,DIRECT < 0.1 MG/DL (0.0-0.2); BILIRUBIN,TOTAL 0.3 MG/DL (0.2-1.0); BLOOD UREA NITROGEN 15 MG/DL (7-18); CALCIUM LEVEL 8.8 MG/DL (8.8-10.2); CARBON DIOXIDE LEVEL 29 MEQ/L (21-32); CHLORIDE LEVEL 103 MEQ/L (98-107); CPK CREATINE PHOSPHOKINASE 65 U/L (26-192); CREATININE FOR GFR 0.96 MG/DL (0.55-1.30); FREE T4 1.07 NG/DL (0.76-1.46); GLOMERULAR FILTRATION RATE > 60.0 (>45); GLUCOSE, FASTING 116 MG/DL (70-100); LIPASE 60 U/L (73-393); MAGNESIUM LEVEL 2.2 MG/DL (1.8-2.4); POTASSIUM SERUM 3.7 MEQ/L (3.5-5.1); SODIUM LEVEL 139 MEQ/L (136-145); THYROID STIMULATING HORMONE 0.983 uIU/ML (0.358-3.740); TOTAL PROTEIN 6.8 GM/DL (6.4-8.2); TROPONIN I < 0.02 NG/ML (< 0.10)
[2018-07-09] MEDS ORDERED: METOCLOPRAMIDE INJ 10MG/2ML VIAL (J2765) IV ONE (13:00)
[2018-07-09] MEDS ORDERED: ISOVUE-370 76% 100ML VIAL (Q9967) As Ordered ONE (13:05)
[2018-07-09] MEDS ORDERED: ONDA4TAB6 PO (14:45)
[2018-07-09 14:49] VITALS: BP 147/86
--- NOTE | 2018-07-09 16:43 | REP ---
CT ABDOMEN AND PELVIS WITH IV CONTRAST: TECHNIQUE: Axial contrast enhanced images from the lung bases to the pubic symphysis using 100 mL Isovue 370 intravenous contrast material with multiplanar reformations. COMPARISON: 09/07/2016 Visualized lungs bases demonstrate very mild fibro atelectatic change. The liver is unremarkable. Patient has had a prior cholecystectomy. I do not see significant biliary dilatation. The spleen, adrenals and pancreas are unremarkable. There is no hydronephrosis bilaterally. There is a small cyst in the lower pole of the right kidney. There is no abdominal aortic aneurysm. There is no adenopathy. There is no free air or free fluid. No bowel wall thickening is seen. No anterior abdominal wall defect is seen. I see no pelvic mass. Urinary bladder is mildly distended and grossly unremarkable. IMPRESSION: No acute abnormalities detected as discussed in detail above. Electronically Signed by Fran French MD 07/09/2018 08:17 P
--- NOTE | 2018-07-09 17:21 | ECGEPIP ---
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
== END 2018-07-09 14:56 | disposition home or self-care (01) ==
LOC: EDBD 11:33 → M ED 11:33
DX: R11.2 Nausea with vomiting, unspecified (principal); R53.83 Other fatigue; I48.91 Unspecified atrial fibrillation; I10 Essential (primary) hypertension; K21.9 Gastro-esophageal reflux disease without esophagitis; M54.9 Dorsalgia, unspecified; G47.33 Obstructive sleep apnea (adult) (pediatric); F41.9 Anxiety disorder, unspecified; C85.90 Non-Hodgkin lymphoma, unspecified, unspecified site; Z88.5 Allergy status to narcotic agent; Z79.899 Other long term (current) drug therapy; Z79.01 Long term (current) use of anticoagulants
CPT/HCPCS: 70450; 74177; 80048; 80076; 81001; 82550; 82553; 83690; 83735; 84439; 84443; 84484; 85025; 93005; 96374; 99284; J2765; Q9967

== ENCOUNTER 2018-09-14 06:46 | Emergency (ER) | payer MEDICARE, OTHER ==
[~2018-09-14] VITALS: Ht 165.1 cm; Wt 67.3 kg
[~2018-09-14 06:46] MED LIST changes: +BUSP5TA; -CALCTAB66 PO; +[UNRECOGNIZED DRUG - CODE] PO
[2018-09-14 09:56] VITALS: BP 132/89
--- NOTE | 2018-09-14 10:14 | REP ---
REASON: Headache. COMPARISON: 07/09/2018. There is no change from the prior exam. There is no acute intracranial hemorrhagic or nonhemorrhagic event. There is minimal volume loss status quo with small vessel ischemic disease. There is no acute fracture. IMPRESSION: No change from last June. Electronically Signed by Jesus Manuel Linn DO 09/14/2018 01:50 P
== END 2018-09-14 09:59 | disposition home or self-care (01) ==
LOC: M ED 06:46
DX: R51 Headache (principal); I48.91 Unspecified atrial fibrillation; I10 Essential (primary) hypertension; E78.5 Hyperlipidemia, unspecified; G47.30 Sleep apnea, unspecified; Z85.72 Personal history of non-Hodgkin lymphomas; Z79.899 Other long term (current) drug therapy; Z88.5 Allergy status to narcotic agent

== ENCOUNTER → 2018-12-09 | Outpatient (CLI) | payer MEDICARE ==
[~2018-12-09] MED LIST changes: +BIOT10009 PO; -BUSP5TA; +BUSP5TA PO; +CALC1TAB53; +CHOL100029 PO; +D 1010002; +E-Z-GAS II EFFERVESCENT PACKET (SODIUM BICARB./CITRIC ACID/SIMETHICONE) As Ordered ONE; +E-Z-HD 98% w/w 340GM SUSP BTL As Ordered ONE; +E-Z-PAQUE 96% w/w SUSP 176GM BTL As Ordered ONE; +METO50TA7; -OMEP40CA2 PO; +OMEP40CA97 PO
--- NOTE | 2018-12-10 06:11 | REP ---
Examination Requested: Esophagram Barium Swallow Reason For Exam/Comment: History of non-Hodgkins lymphoma , difficulty swallowing Esophagram: The procedure was performed NIKO Dietz, under the direct supervision of Dr. Villalobos. The images were reviewed with Dr. Villalobos. A single PA chest x-ray is submitted as a nozzle tender film. The superior mediastinal structures are midline. The heart size is within normal limits. The lungs are clear. There are postsurgical roscoe noted in the right upper quadrant. Liquid barium and gas producing granules were given in the erect position as well as liquid barium in the prone oblique position, in order to perform a double contrast esophagram examination. Oral and pharyngeal stages of the examination were unremarkable. There are anterior osteophytes of the C5-6 disc space impinging the posterior wall of the esophagus. A transverse linear lucency is visualized in the hypopharynx, compatible with mucosal web. Esophageal transport is efficient and there is no esophagitis, or stricture noted. There is no hiatal hernia noted. Gastroesophageal reflux was not appreciated throughout the course of the exam. Impression: 1. Anterior osteophytes of the C5-6 vertebral bodies impinging the posterior wall of the esophagus. 2. Transverse linear lucency of the hypopharynx compatible with mucosal web. 0.4 minutes of fluoroscopy time was utilized for this procedure. Some fluoroscopic images are performed with last image hold technology. These images require no additional radiation. Reviewed by NIKO Kelly 12/09/2018 05:12 P Electronically Signed by Fran Villalobos MD 12/10/2018 06:03 A
== END ==
LOC: M RAD 09:04
PROVIDERS: ATTEND Otolaryngology
DX: C85.90 Non-Hodgkin lymphoma, unspecified, unspecified site (principal)

== ENCOUNTER → 2019-01-05 | Outpatient (REF) | payer MEDICARE ==
[~2019-01-05] MED LIST changes: -BIOT10009 PO; +BUSP5TA; -BUSP5TA PO; -CALC1TAB53; -CHOL100029 PO; -D 1010002; -E-Z-GAS II EFFERVESCENT PACKET (SODIUM BICARB./CITRIC ACID/SIMETHICONE) As Ordered ONE; -E-Z-HD 98% w/w 340GM SUSP BTL As Ordered ONE; -E-Z-PAQUE 96% w/w SUSP 176GM BTL As Ordered ONE; -METO50TA7; +OMEP40CA2 PO; -OMEP40CA97 PO
[2019-01-05 13:31] LABS: PERCENT SATURATION 24.6 % (13.2-45.0)
== END ==
LOC: M LAB REF 12:40
PROVIDERS: ATTEND Internal Medicine
DX: D64.9 Anemia, unspecified (principal)

== ENCOUNTER 2019-02-03 15:47 | Emergency (ER) | payer MEDICARE, OTHER ==
[~2019-02-03] VITALS: Ht 165.1 cm; Wt 65.9 kg
[~2019-02-03 15:47] MED LIST changes: +BIOT10009 PO; -BUSP5TA; +BUSP5TA PO; +CHOL100029 PO
[2019-02-03] MEDS ORDERED: D 1010002 (15:56)
[2019-02-03] MEDS ORDERED: METO50TA7 (15:56)
[2019-02-03] MEDS ORDERED: CALC1TAB53 (15:56)
--- NOTE | 2019-02-03 16:37 | REP ---
CT of the head without contrast Indication: Trauma. Comparison: CT head 09/14/2018. Technique: Axial CT of the head was performed without contrast. Findings: There is no visible soft tissue swelling or calvarial fracture. There is hyperostosis frontalis interna. There is no evidence of acute intracranial hemorrhage or extra-axial fluid collection. There are scattered hypodensities within the periventricular subcortical white matter which is nonspecific but suggestive of microvascular ischemic disease, similar to prior. There is no mass effect or midline shift. The basal cisterns are patent. There is no hydrocephalus. The visualized paranasal sinuses and mastoid air cells are clear. Impression: No acute intracranial abnormality. Similar white matter changes. Electronically Signed by Mary Reynolds MD 02/03/2019 04:27 P
[2019-02-03 17:14] VITALS: BP 149/85
== END 2019-02-03 17:10 | disposition home or self-care (01) ==
LOC: M ED 15:47
DX: S06.0X0A Concussion without loss of consciousness, initial encounter (principal); W22.09XA Striking against other stationary object, initial encounter; Y92.098 Other place in other non-institutional residence as the place of occurrence of the external cause; Y93.01 Activity, walking, marching and hiking; Y99.8 Other external cause status; I48.91 Unspecified atrial fibrillation; I10 Essential (primary) hypertension; E78.9 Disorder of lipoprotein metabolism, unspecified; C85.90 Non-Hodgkin lymphoma, unspecified, unspecified site; G47.33 Obstructive sleep apnea (adult) (pediatric); Z88.5 Allergy status to narcotic agent; Z79.899 Other long term (current) drug therapy; Z79.01 Long term (current) use of anticoagulants

== ENCOUNTER → 2019-03-10 | Outpatient (CLI) | payer MEDICARE ==
[~2019-03-10] MED LIST changes: +CALC1TAB53; +D 1010002; +METO50TA7; -OMEP40CA2 PO; +OMEP40CA97 PO
[2019-03-10 20:03] LABS: BASO % 0.7 % (0.0-1.0); EOS # 0.1 10^3/uL (0.0-0.5); EOS % 2.7 % (0.0-3.0); HEMATOCRIT 36.4 % (36.0-47.0); LYMPH # 1.3 10^3/uL (1.5-5.0); LYMPH % 31.8 % (24.0-44.0); MEAN CORPUSCULAR HEMOGLOBIN 33.1 pg (27.0-33.0); MEAN CORPUSCULAR VOLUME 100.6 fl (80.0-96.0); MONO # 0.5 10^3/uL (0.0-0.8); MONO % 11.2 % (0.0-5.0); NEUTROPHILS # 2.2 10^3/uL (1.5-8.5); NEUTROPHILS % 53.4 % (36.0-66.0); PLATELET COUNT, AUTOMATED 269 10^3/uL (150-450); RED BLOOD COUNT 3.62 10^6/uL (4.00-5.40); WHITE BLOOD COUNT 4.1 10^3/uL (4.0-10.0)
[2019-03-10 20:33] LABS: ALBUMIN 3.8 GM/DL (3.2-5.2); ALT/SGPT 20 U/L (12-78); BILIRUBIN,TOTAL 0.6 MG/DL (0.2-1.0); BLOOD UREA NITROGEN 19 MG/DL (7-18); CALCIUM LEVEL 9.1 MG/DL (8.8-10.2); CARBON DIOXIDE LEVEL 32 MEQ/L (21-32); CHLORIDE LEVEL 104 MEQ/L (98-107); GLOMERULAR FILTRATION RATE > 60.0 (>45); GLUCOSE, FASTING 95 MG/DL (70-100); POTASSIUM SERUM 3.9 MEQ/L (3.5-5.1); SODIUM LEVEL 141 MEQ/L (136-145)
--- NOTE | 2019-03-11 03:58 | REP ---
Clinical: Left hip pain. Technique: Neutral and frog lateral views of the left hip. Findings: Mild age-related changes are appreciated with minimal joint space narrowing and mild acetabular spurring. No acute fracture dislocation. Impression: Mild age-related degenerative changes. Electronically Signed by Zach Bell MD 03/11/2019 03:50 A
--- NOTE | 2019-03-11 03:59 | REP ---
Clinical: Left lower quadrant pain. Technique: Two supine views of the abdomen and pelvis. Findings: Bowel gas pattern is nonspecific. No obvious evidence for obstruction or perforation. No organomegaly. Skeletal structures demonstrate age-related degenerative changes. Impression: Nonspecific abdominal radiographs. Electronically Signed by Zach Bell MD 03/11/2019 03:51 A
== END ==
LOC: M WUC 18:45
PROVIDERS: ATTEND Physician Assistant
DX: M25.752 Osteophyte, left hip (principal); R10.32 Left lower quadrant pain

== ENCOUNTER → 2019-06-22 | Outpatient (CLI) | payer MEDICARE ==
[2019-06-22 19:03] LABS: HEMATOCRIT 39.5 % (36.0-47.0); HEMOGLOBIN 12.1 g/dl (12.0-15.5); MEAN CORPUSCULAR HEMOGLOBIN 31.3 pg (27.0-33.0); MEAN CORPUSCULAR HGB CONC 30.6 g/dl (32.0-36.5); MEAN CORPUSCULAR VOLUME 102.3 fl (80.0-96.0); PLATELET COUNT, AUTOMATED 258 10^3/uL (150-450); RED BLOOD COUNT 3.86 10^6/uL (4.00-5.40); WHITE BLOOD COUNT 3.6 10^3/uL (4.0-10.0)
[2019-06-22 19:13] LABS: CALCIUM LEVEL 9.4 MG/DL (8.8-10.2); CREATININE FOR GFR 1.02 MG/DL (0.55-1.30); GLOMERULAR FILTRATION RATE 57.4 (>45); POTASSIUM SERUM 4.5 MEQ/L (3.5-5.1)
== END ==
LOC: M WUC 11:39
PROVIDERS: ATTEND Nurse Practitioner Family
DX: I48.0 Paroxysmal atrial fibrillation (principal); R06.02 Shortness of breath

== ENCOUNTER → 2019-10-20 | Outpatient (CLI) | payer MEDICARE ==
[~2019-10-20] MED LIST changes: +VITAD1000T PO
--- NOTE | 2019-10-20 16:45 | REP ---
COOKIE SWALLOW The procedure was performed under the direct supervision of Dr. French. The procedure was performed with Radha Saunders from speech pathology present. 5 ml aliquots of pudding, thin, mixed fruit, soft and solid consistency barium was administered. A barium pill was also administered. There is no evidence of penetration or aspiration. A detailed report of this examination will be provided by speech pathology. 1.1 minutes of fluoroscopy time was utilized for this procedure. Electronically Signed by NIKO Fletcher 10/20/2019 04:21 P Electronically Signed by Fran French MD 10/20/2019 04:37 P
== END ==
LOC: M ST 10:47
PROVIDERS: ATTEND Physician Assistant Medical
DX: R13.10 Dysphagia, unspecified (principal)

== ENCOUNTER → 2019-10-21 | Outpatient (CLI) | payer MEDICARE ==
[2019-10-21 09:47] LABS: BASO % 0.8 % (0.0-1.0); EOS # 0.1 10^3/uL (0.0-0.5); EOS % 2.9 % (0.0-3.0); HEMOGLOBIN 11.7 g/dl (12.0-15.5); LYMPH # 1.2 10^3/uL (1.5-5.0); LYMPH % 30.5 % (24.0-44.0); MEAN CORPUSCULAR HEMOGLOBIN 31.8 pg (27.0-33.0); MEAN CORPUSCULAR HGB CONC 32.5 g/dl (32.0-36.5); MEAN CORPUSCULAR VOLUME 97.8 fl (80.0-96.0); MONO # 0.4 10^3/uL (0.0-0.8); MONO % 9.9 % (0.0-5.0); NEUTROPHILS # 2.1 10^3/uL (1.5-8.5); NEUTROPHILS % 55.6 % (36.0-66.0); PLATELET COUNT, AUTOMATED 219 10^3/uL (150-450); RED BLOOD COUNT 3.68 10^6/uL (4.00-5.40); WHITE BLOOD COUNT 3.8 10^3/uL (4.0-10.0)
[2019-10-21 10:13] LABS: ALBUMIN 3.5 GM/DL (3.2-5.2); BILIRUBIN,TOTAL 0.5 MG/DL (0.2-1.0); CALCIUM LEVEL 9.1 MG/DL (8.8-10.2); CREATININE FOR GFR 1.04 MG/DL (0.55-1.30); GLOMERULAR FILTRATION RATE 55.9 (>45); POTASSIUM SERUM 3.8 MEQ/L (3.5-5.1); TOTAL PROTEIN 6.6 GM/DL (6.4-8.2)
== END ==
LOC: M WUC 08:43
PROVIDERS: ATTEND Internal Medicine Hematology & Oncology
DX: C85.90 Non-Hodgkin lymphoma, unspecified, unspecified site (principal)

== ENCOUNTER → 2019-11-17 | Outpatient (CLI) | payer MEDICARE ==
[~2019-11-17] MED LIST changes: +GASTROGRAFIN SOLUTION 30ML (Q9963) As Ordered ONE; +ISOVUE-370 76% 100ML VIAL As Ordered ONE; -METO50TA7; +METO50TA7 PO
--- NOTE | 2019-11-17 13:23 | REP ---
REASON FOR EXAM: Follicular lymphoma. COMPARISON: Multiple the latest 03/16/2019. CONTRAST: 100 mL Isovue 370. For a description of the lung bases see CT chest report made the same day. The liver, spleen, pancreas, adrenal glands, and kidneys are again seen to be within normal limits. There is an unchanged incidental right renal cyst. Surgical clips are again seen in the gallbladder fossa from previous cholecystectomy. There is minimal intrahepatic ductal dilatations secondary to the post cholecystectomy status quo. The abdominal aorta and paraaortic regions are unchanged. No adenopathy has developed. The intra-abdominal and intrapelvic bowel loops and their mesenteries are essentially unchanged. No intra-abdominal or intrapelvic mass or adenopathy has developed. There is no free fluid or free air. Bone window technique throughout the examination shows no change in the osseous structures. IMPRESSION: No evidence of acute intra-abdominal or intrapelvic disease. Electronically Signed by Jesus Manuel Linn DO 11/17/2019 05:17 P
--- NOTE | 2019-11-17 13:30 | REP ---
REASON: Followup follicular lymphoma. The latest prior for comparison is 09/07/2016 a noncontrast enhanced exam. CONTRAST: Today 100 mL Isovue 370. There is no mediastinal or hilar adenopathy. There are no pleural or pericardial effusions. The imaged osseous structures are unchanged and again seen to be within normal limits for the patient's age. Evaluation of the lung kaur shows no change in the appearance of the 3 mm sized pleural-based right upper lobe nodule. There are a few bibasilar curvilinear densities which are unchanged likely representing fibrotic and/or subsegmental atelectatic changes. No new abnormal nodules, masses or opacities have developed. IMPRESSION: No significant change from the prior exam. There is no evidence of acute disease. Electronically Signed by Jesus Manuel Linn DO 11/17/2019 05:17 P
== END ==
LOC: M RAD 07:36
PROVIDERS: ATTEND Internal Medicine Hematology & Oncology
DX: C82.90 Follicular lymphoma, unspecified, unspecified site (principal)
CPT/HCPCS: 71260; 74177; Q9963; Q9967

== ENCOUNTER → 2020-02-11 | Outpatient (REF) | payer MEDICARE ==
[~2020-02-11] MED LIST changes: +AMLO1TAB24 PO; -AMLO5TAB6 PO; +D31000TA2 PO; -GASTROGRAFIN SOLUTION 30ML (Q9963) As Ordered ONE; -ISOVUE-370 76% 100ML VIAL As Ordered ONE; -VITAD1000T PO
[2020-02-12 13:31] LABS: PERCENT SATURATION 21.8 % (13.2-45.0)
== END ==
LOC: M LAB REF 12:22
PROVIDERS: ATTEND Internal Medicine
DX: D64.9 Anemia, unspecified (principal)

== ENCOUNTER 2020-06-05 14:36 | Observation (INO) | payer MEDICARE ==
[~2020-06-05] VITALS: Ht 167.6 cm; Wt 67.0 kg
[~2020-06-05 14:36] MED LIST changes: -CALC1TAB53; +CALC1TAB53 PO; +IBUP1TAB5 PO; -IBUP40TA PO; -LISI-538 PO; +LISI20TA33 PO
[2020-06-05] MEDS ORDERED: ADENOSINE 6MG/2ML INJECTION (J0153) ONE (14:37)
[2020-06-05] MEDS ORDERED: ALPR0.5T3 PO (14:59)
[2020-06-05] MEDS ORDERED: BUSP10TA (14:59)
[2020-06-05] MEDS ORDERED: LISI10TA22 PO (14:59)
[2020-06-05 15:46] LABS: BASO % 0.7 % (0.0-1.0); EOS # 0.1 10^3/uL (0.0-0.5); EOS % 2.4 % (0.0-3.0); HEMATOCRIT 36.9 % (36.0-47.0); HEMOGLOBIN 12.1 g/dl (12.0-15.5); LYMPH # 1.2 10^3/uL (1.5-5.0); LYMPH % 28.4 % (24.0-44.0); MEAN CORPUSCULAR HEMOGLOBIN 33.2 pg (27.0-33.0); MEAN CORPUSCULAR HGB CONC 32.8 g/dl (32.0-36.5); MEAN CORPUSCULAR VOLUME 101.1 fl (80.0-96.0); MONO # 0.4 10^3/uL (0.0-0.8); MONO % 8.8 % (0.0-5.0); NEUTROPHILS # 2.5 10^3/uL (1.5-8.5); NEUTROPHILS % 59.5 % (36.0-66.0); PLATELET COUNT, AUTOMATED 249 10^3/uL (150-450); RED BLOOD COUNT 3.65 10^6/uL (4.00-5.40); WHITE BLOOD COUNT 4.2 10^3/uL (4.0-10.0)
[2020-06-05 15:57] LABS: ALBUMIN 3.7 GM/DL (3.2-5.2); ALT/SGPT 22 U/L (12-78); BILIRUBIN,DIRECT 0.1 MG/DL (0.0-0.2); BILIRUBIN,TOTAL 0.5 MG/DL (0.2-1.0); BLOOD UREA NITROGEN 17 MG/DL (7-18); CALCIUM LEVEL 9.7 MG/DL (8.8-10.2); CARBON DIOXIDE LEVEL 31 MEQ/L (21-32); CHLORIDE LEVEL 105 MEQ/L (98-107); CREATININE FOR GFR 1.11 MG/DL (0.55-1.30); GLOMERULAR FILTRATION RATE 51.9 (>45); GLUCOSE, FASTING 88 MG/DL (70-100); SODIUM LEVEL 139 MEQ/L (136-145); TOTAL PROTEIN 6.9 GM/DL (6.4-8.2)
--- NOTE | 2020-06-05 16:29 | REP ---
INDICATION: headahce COMPARISON: 02/03/2019 TECHNIQUE: Axial noncontrast images from the skull base to the thoracic inlet with coronal reformations. This CT examination was performed using the following dose reduction techniques: Automated exposure control, adjustment of mA and/or kv according to the patient's size, and use of iterative reconstruction technique. FINDINGS: Age-related atrophy and microvascular ischemic changes are appreciated. The ventricles and sulci are symmetric. French-white differentiation is maintained. There is no evidence for acute intracranial hemorrhage, mass/mass effect, pathology or infarction. No extra-axial fluid collection. Calvarium is intact. Paranasal sinuses and mastoid air cells are clear. IMPRESSION: Age related atrophy and microvascular ischemic changes. No acute intracranial hemorrhage, infarction, or mass/mass effect. <Electronically signed by Zach Bell > 06/05/20 [id number]
[2020-06-05] MEDS ORDERED: LABETALOL 100MG/20ML VIAL IV STA ×2 (16:37→18:03)
[2020-06-05] MEDS ORDERED: hydrALAZINE 20MG/ML 1ML VIAL (J0360 PER 20MG) IV ONE ×2 (16:45→17:15)
[2020-06-05] MEDS ORDERED: KETOROLAC 30 MG/ML 1ML VIAL IV ONE (17:00)
[2020-06-05] MEDS ORDERED: ADENOSINE 6MG/2ML INJECTION (J0153) IV STA (17:33)
[2020-06-05 17:34] LABS: CK-MB VALUE MASS 1.1 NG/ML (<3.6); CPK CREATINE PHOSPHOKINASE 64 U/L (26-192); MB/CK RELATIVE INDEX 1.72 (< OR =4); TROPONIN I < 0.02 NG/ML (< 0.10)
[2020-06-05] MEDS ORDERED: LABETALOL 100MG/20ML VIAL As Ordered ONE (17:43)
[2020-06-05] MEDS ORDERED: RIVAROXABAN 20 MG TAB (XARELTO) PO SCH (18:00)
[2020-06-05] MEDS ORDERED: hydrALAZINE 20MG/ML 1ML VIAL (J0360 PER 20MG) IV PRN (18:30)
[2020-06-05] MEDS ORDERED: ALPRAZolam 0.25 MG TAB PO ONE (18:45)
--- NOTE | 2020-06-05 19:29 | REP ---
INDICATION: schmitz COMPARISON: 09/05/2016 TECHNIQUE: Portable AP view of the chest FINDINGS: The mediastinum and cardiac silhouette are stable and within normal limits for portable technique. The lung kaur are clear without acute consolidation, effusion, or pneumothorax. Skeletal structures are intact. IMPRESSION: No acute cardiopulmonary process appreciated. <Electronically signed by Zach Bell > 06/05/20 [id number]
--- NOTE | 2020-06-05 19:42 | ECGEPIP ---
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
[2020-06-05] MEDS: NITROGLYCERIN 2% OINT 1 GM *U/D* PKT TOP SCH ×2 (19:46→23:39)
[2020-06-05] MEDS ORDERED: LORazepam 2 MG/ML VIAL IV STA (19:53)
--- NOTE | 2020-06-05 20:21 | HPEPDOC ---
General Date of Admission Jun 05, 2020 at 14:37 Date of Service: Jun 05, 2020 Chief Complaint The patient is a 69-year-old female admitted with a reason for visit of Hypertensive Urgency. Source: Patient Exam Limitations: No limitations Timing/Duration: Week(s) Severity: Moderate History of Present Illness Patient is 65 years old female with past medical history of Non-Hodgkin's lymphoma status post chemotherapy, atrial fibrillation, Left breast cancer, hypertension, hyperlipidemia sleep apnea presented to the hospital with severe headache. Patient stated that for past 4-6 weeks she's has been having almost constant severe headache 8 out of 10 in the frontal part of her head. Patient denies any photophobia, facial numbness or any trigger of headache. In ER patient was found to have high blood pressure 200/100 with tachycardia. Patient received hydralazine, she developed SVT subsided after injection of adenosine. CT head was done and showed Age related atrophy and microvascular ischemic changes. No acute intracranial hemorrhage, infarction, or mass/mass effect. Home Medications Scheduled Atorvastatin Calcium (Atorvastatin Calcium) 10 Mg Tab, 10 MG PO QHS, (Reported) Biotin (Biotin) 1,000 Mcg Tab.chew, 1,000 MCG PO DAILY, (Reported) Buspirone HCl (Buspirone HCl) 5 Mg Tab, 5 MG PO BID, (Reported) Calcium Citrate Malate/Vit D3 (Calcium Citrate Malate with D) 1 Each Tablet, 1 TAB PO DAILY, (Reported) Cholecalciferol (Vitamin D3) (Vitamin D3) 1,000 Unit Tablet, 1,000 UNITS PO DAILY, (Reported) Lisinopril (Lisinopril) 10 Mg Tablet, 10 MG PO QHS, (Reported) Metoprolol Tartrate (Metoprolol Tartrate) 50 Mg Tablet, 50 MG PO DAILY, (Reported) Rivaroxaban (Xarelto) 20 Mg Tab, 20 MG PO QPM, (Reported) Scheduled PRN Alprazolam (Alprazolam) 0.5 Mg Tablet, 0.25 MG PO BID PRN for ANXIETY, (Reported) Allergies Coded Allergies: hydralazine (Verified Allergy, Severe, SVT, 06/05/20) codeine (Verified Adverse Reaction, Mild, Abd pain, Vomiting, 09/22/18) morphine (Verified Adverse Reaction, Mild, Abd pain, Vomiting, 09/22/18) Past Medical History Medical History 1. Non-Hodgkin's lymphoma status post chemotherapy. 2. Left breast cancer. 3. Hypertension. 4. Hyperlipidemia. 5. Moderate sleep apnea, not on continuous positive airway pressure (CPAP). Atrial fibrillation Surgical History 1. Left breast lumpectomy. 2. Cholecystectomy. 3. Appendectomy. 4. Back surgery. 5. Colonoscopy. 6. Bone marrow biopsy. 7. History of echocardiogram, which showed normal ejection fraction (EF), grade 1 diastolic dysfunction. Family History I personally reviewed family history and found not pertinent Social History * Smoker: Denies Alcohol: Denies Drugs: denies A-FIB/CHADSVASC A-FIB History Current/History of A-Fib/PAF?: Yes Current PO Anticoag Therapy: Yes Review of Systems Constitutional: Denies: Chills, Fever Eyes: Denies: Pain, Vision change ENT: Reports: Head Aches Skin: Denies: Rash Pulmonary: Denies: Dyspnea, Cough Cardiovascular: Reports: Palpitations; Denies: Chest Pain Gastrointestinal: Denies: Nausea, Vomiting Genitourinary: Denies: Dysuria, Frequency Hematologic: Denies: Bruising Endocrine: Denies: Polydipsia Musculoskeletal: Denies: Neck Pain Neurological: Denies: Weakness Psych: Reports: Anxiety Physical Examination General Exam: Positive: Alert, Cooperative, Severe Distress Eye Exam: Positive: PERRLA ENT Exam: Positive: Atraumatic Neck Exam: Positive: Supple Chest Exam: Positive: Clear to auscultation Heart Exam: Positive: Tachycardic, Irregular Rhythm Telemetry: Positive: Atrial fibrillation Abdomen Exam: Positive: Normal bowel sounds Skin Exam: Positive: Nl turgor and temperature Neuro Exam: Positive: Strength at 5/5 X4 ext, Cranial Nerves 3-12 NL, Reflexes 2+ Psych Exam: Positive: Mental status NL Vital Signs Vital Signs Date Time Temp Pulse Resp B/P (MAP) Pulse Ox O2 Delivery O2 Flow Rate FiO2 06/05/20 18:23 138 165/92 06/05/20 16:12 18 97 06/05/20 14:37 98.2 Laboratory Data Labs 24H Laboratory Tests 2 06/05/20 15:15: Immature Granulocyte % (Auto) 0.2, Neutrophils (%) (Auto) 59.5, Lymphocytes (%) (Auto) 28.4, Monocytes (%) (Auto) 8.8H, Eosinophils (%) (Auto) 2.4, Basophils (%) (Auto) 0.7, Neutrophils # (Auto) 2.5, Lymphocytes # (Auto) 1.2L, Monocytes # (Auto) 0.4, Eosinophils # (Auto) 0.1, Basophils # (Auto) 0.0, Nucleated Red Blood Cells % (auto) 0.0, Anion Gap 3L, Glomerular Filtration Rate 51.9, Calcium Level 9.7, Total Bilirubin 0.5, Direct Bilirubin 0.1, Aspartate Amino Transf (AST/SGOT) 22, Alanine Aminotransferase (ALT/SGPT) 22, Alkaline Phosphatase 61, Total Creatine Kinase 64, Creatine Kinase MB 1.1, Creatine Kinase MB Relative Index 1.72, Troponin I < 0.02, Total Protein 6.9, Albumin 3.7, Albumin/Globulin Ratio 1.2 06/05/20 19:32: CBC/BMP Laboratory Tests 06/05/20 15:15 Assessment/Plan Patient is 65 years old female with past medical history of Non-Hodgkin's lymphoma status post chemotherapy, atrial fibrillation, Left breast cancer, hypertension, hyperlipidemia sleep apnea presented to the hospital with severe headache. Patient stated that for past 4-6 weeks she's has been having almost constant severe headache 8 out of 10 in the frontal part of her head. Patient denies any photophobia, facial numbness or any trigger of headache. In ER patient was found to have high blood pressure 200/100 with tachycardia. Patient received hydralazine, she developed SVT subsided after injection of adenosine. CT head was done and showed Age related atrophy and microvascular ischemic changes. No acute intracranial hemorrhage, infarction, or mass/mass effect. Problems (1) Headache Status: Acute Problem Text: Worrisome symptom given her previous history of malignancy CT negative MRI, MRA ordered Pain management (2) Hypertensive urgency Status: Acute Problem Text: Patient continues to have severe headache Patient in severe distress due to anxiety Lorazepam 1 mg IV STAT Captopril 6.25 by mouth Continue home cardioprotective medications (3) Atrial fibrillation with RVR Status: Acute Problem Text: Beta blockers Continue oral targeted anticoagulation (4) SVT (supraventricular tachycardia) Status: Acute Problem Text: Resolved after adenosin (5) Lymphoma, non-Hodgkin's Status: Acute Problem Text: Follow-up with oncologist (6) Anxiety Status: Acute Problem Text: Continue alprazolam Lorazepam 1mg IV STAT (7) Nausea Status: Acute Problem Text: Zofran Plan / VTE VTE Prophylaxis Ordered?: Yes ROSHAN FORD DO Jun 05, 2020 20:21
[2020-06-05] MEDS ORDERED: ALPRAZolam 0.25 MG TAB PO PRN (20:30)
[2020-06-05] MEDS ORDERED: LABETALOL 100MG/20ML VIAL IV PRN (20:30)
[2020-06-05] MEDS: ACETAMINOPHEN TAB 650MG DOSE (2X325MG) PO PRN (20:49)
[2020-06-05] MEDS ORDERED: ONDANSETRON 4MG/2ML VIAL IV ONE (21:00)
[2020-06-05] MEDS ORDERED: CAPTOpril 6.25 MG PER 1/2 TABLET PO ONE (21:00)
[2020-06-05] MEDS ORDERED: ATORVASTATIN 10 MG TAB PO SCH (21:00)
[2020-06-05] MEDS ORDERED: METOPROLOL TART 50 MG TAB PO ONE (21:00)
[2020-06-05] MEDS ORDERED: RAMELTEON 8 MG TAB (ROZEREM) PO SCH (21:00)
[2020-06-05 21:30] VITALS: BP 129/80
[2020-06-05 22:08] VITALS: BP 118/68
--- NOTE | 2020-06-05 23:32 | REPVR ---
PROCEDURE INFORMATION: Exam: MR Head Without Contrast Exam date and time: 06/05/2020 11:03 PM Age: 69 years old Clinical indication: Pain; Headache; Cluster; Patient HX: H/a on and off for 6 weeks, nki; Additional info: Severe ROGERS TECHNIQUE: Imaging protocol: MR of the head without contrast. COMPARISON: CT Head without contrast 06/05/2020 4:07 PM FINDINGS: Patient motion. Major vascular flow voids at the skull base are preserved. No extra-axial fluid collection. No midline shift or intracranial mass effect. Nonspecific white matter gliosis, probable chronic microvascular ischemia. No cerebral edema or pathologic susceptibility. No diffusion restriction. Visualized paranasal sinuses and mastoid air cells are clear. IMPRESSION: No acute intracranial abnormality. Electronically signed by: Trevon John On 06/05/2020 23:33:30 PM
--- NOTE | 2020-06-05 23:35 | REPVR ---
PROCEDURE INFORMATION: Exam: MR Angiogram Head Without Contrast, Arteries Exam date and time: 06/05/2020 11:03 PM Age: 69 years old Clinical indication: Pain; Headache; Patient HX: H/a on and off for 6 weeks, nki; Additional info: Severe ROGERS TECHNIQUE: Imaging protocol: MR angiogram head without contrast. Exam focused on the arteries. 3D rendering (Not supervised by radiologist): MIP and/or 3D reconstructed images were created by the technologist. COMPARISON: CT Head without contrast 06/05/2020 4:07 PM FINDINGS: ANTERIOR CIRCULATION: Right internal carotid artery: Intracranial segment is patent with no significant stenosis. No aneurysm. Right middle cerebral artery: No occlusion or significant stenosis. No aneurysm. Right anterior cerebral artery: No occlusion or significant stenosis. No aneurysm. Left internal carotid artery: Intracranial segment is patent with no significant stenosis. No aneurysm. Left middle cerebral artery: No occlusion or significant stenosis. No aneurysm. Left anterior cerebral artery: No occlusion or significant stenosis. No aneurysm. POSTERIOR CIRCULATION: Right vertebral artery: Right vertebral artery is dominant. Left vertebral artery: No occlusion or significant stenosis. No aneurysm. Basilar artery: No occlusion or significant stenosis. No aneurysm. Right posterior cerebral artery: Infundibulum at the origin of hypoplastic right posterior communicating artery. Left posterior cerebral artery: No occlusion or significant stenosis. No aneurysm. IMPRESSION: No hemodynamically significant stenosis or large vessel occlusion. Electronically signed by: Trevon John On 06/05/2020 23:35:54 PM
[2020-06-05] MEDS: busPIRone 5 MG TAB PO SCH (23:54)
[2020-06-06] VITALS: BP 118/70
[2020-06-06] MEDS ORDERED: ONDANSETRON 4MG/2ML VIAL IV PRN
[2020-06-06 04:00] VITALS: BP 98/64
[2020-06-06] MEDS: NITROGLYCERIN 2% OINT 1 GM *U/D* PKT TOP SCH ×3 (04:00→12:00)
[2020-06-06 05:40] LABS: HEMATOCRIT 35.1 % (36.0-47.0); HEMOGLOBIN 11.3 g/dl (12.0-15.5); MEAN CORPUSCULAR HEMOGLOBIN 32.3 pg (27.0-33.0); MEAN CORPUSCULAR HGB CONC 32.2 g/dl (32.0-36.5); MEAN CORPUSCULAR VOLUME 100.3 fl (80.0-96.0); PLATELET COUNT, AUTOMATED 208 10^3/uL (150-450); WHITE BLOOD COUNT 4.4 10^3/uL (4.0-10.0)
[2020-06-06 06:11] LABS: ALBUMIN 3.1 GM/DL (3.2-5.2); BILIRUBIN,TOTAL 0.4 MG/DL (0.2-1.0); CALCIUM LEVEL 8.8 MG/DL (8.8-10.2); CREATININE FOR GFR 1.19 MG/DL (0.55-1.30); GLOMERULAR FILTRATION RATE 47.9 (>45); POTASSIUM SERUM 3.9 MEQ/L (3.5-5.1); TOTAL PROTEIN 6.5 GM/DL (6.4-8.2)
[2020-06-06 08:00] VITALS: BP 119/69
[2020-06-06] MEDS: ACETAMINOPHEN TAB 650MG DOSE (2X325MG) PO PRN (08:10)
[2020-06-06] MEDS: busPIRone 5 MG TAB PO SCH (08:11)
[2020-06-06] MEDS ORDERED: METOPROLOL TART 50 MG TAB PO SCH (09:00)
[2020-06-06] MEDS ORDERED: VITAMIN D 1,000 INTERNATIONAL UNITS TABLET PO SCH (09:00)
[2020-06-06] MEDS: GASTROGRAFIN SOLUTION 30ML PO SCH ×2 (11:06→11:42)
[2020-06-06 12:00] VITALS: BP 138/75
[2020-06-06] MEDS ORDERED: ISOVUE-370 76% 100ML VIAL As Ordered ONE (12:13)
--- NOTE | 2020-06-06 13:07 | REP ---
INDICATION: inerim eval/NHL COMPARISON: 11/17/2019 TECHNIQUE: Axial contrast enhanced images from the thoracic inlet to the upper abdomen followed by CT of the abdomen and pelvis using 100 ml Isovue 370 intravenous contrast material. Coronal and sagittal reformations obtained. This CT examination was performed using the following dose reduction techniques: Automated exposure control, adjustment of mA and/or kv according to the patient's size, and use of iterative reconstruction technique. FINDINGS: The bilateral lung kaur are well aerated and clear. No consolidation, suspicious nodule or mass lesion. Stable 3 mm density along the periphery of the right upper lobe (series 204; image 26) is unchanged. No pleural effusion. No pneumothorax. Tracheobronchial tree is patent. Mediastinum demonstrates normal thoracic aorta, pulmonary vasculature, and heart/pericardium. No axillary, hilar, or mediastinal adenopathy. Surrounding musculoskeletal structures demonstrate age-related changes without acute osseous abnormality. IMPRESSION: No acute mediastinal or pleuroparenchymal process. No evidence for adenopathy. <Electronically signed by Zach Bell > 06/06/20 [id number]
--- NOTE | 2020-06-06 13:13 | REP ---
INDICATION: inerim eval/NHL. COMPARISON: 11/17/2019 TECHNIQUE: Axial contrast-enhanced images from the lung bases to the pubic symphysis using oral and 100 cc Isovue 370 intravenous contrast material. Delayed images of the abdomen along with coronal and sagittal reformations obtained. This CT examination was performed using the following dose reduction techniques: Automated exposure control, adjustment of mA and/or kv according to the patient's size, and the use of iterative reconstruction technique. FINDINGS: Liver, spleen, pancreas, bilateral adrenal glands and kidneys are normal. Evidence for prior cholecystectomy. The enteric system including stomach, small, and large bowel appears normal. No evidence for obstruction or acute inflammatory process. Normal terminal ileum and cecum identified in the right lower quadrant. Pelvis demonstrates normal bladder and age-appropriate uterus/adnexa. No ascites. No free air. No intraperitoneal or retroperitoneal adenopathy. Abdominal aorta and vasculature appear normal. Musculoskeletal structures are intact and without acute osseous abnormality. IMPRESSION: No acute abdominopelvic pathology appreciated. No evidence for adenopathy or recurrence/metastatic disease. <Electronically signed by Zach Bell > 06/06/20 [id number]
--- NOTE | 2020-06-06 14:26 | DS.PDOC ---
Discharge Summary General Date of Admission Jun 05, 2020 at 14:37 Date of Discharge 06/06/20 Discharge Summary PROCEDURES PERFORMED DURING STAY: [None]. ADMITTING DIAGNOSES: Hypertensive urgency SECONDARY DIAGNOSES: Medical History 1. Non-Hodgkin's lymphoma status post chemotherapy three years ago - currently in remission 2. Left breast cancer. 3. Hypertension. 4. Hyperlipidemia. 5. Moderate sleep apnea, not on continuous positive airway pressure (CPAP). 6. Atrial fibrillation 7. HFpEF Surgical History 1. Left breast lumpectomy. 2. Cholecystectomy. 3. Appendectomy. 4. Back surgery. 5. Colonoscopy. 6. Bone marrow biopsy. COMPLICATIONS/CHIEF COMPLAINT: Hypertensive Urgency. HISTORY OF PRESENT ILLNESS: Patient is 65 years old female with past medical history of Non-Hodgkin's lymphoma status post chemotherapy, atrial fibrillation, Left breast cancer, hypertension, hyperlipidemia sleep apnea presented to the hospital with severe headache. Patient stated that for past 4-6 weeks she's has been having almost constant severe headache 8 out of 10 in the frontal part of her head. Patient denies any photophobia, facial numbness or any trigger of headache. In ER patient was found to have high blood pressure 200/100 with tachycardia. Patient received hydralazine, she developed SVT subsided after injection of adenosine. CT head was done and showed Age related atrophy and microvascular ischemic changes. No acute intracranial hemorrhage, infarction, or mass/mass effect. HOSPITAL COURSE: Patient's blood pressure remained stable. No events were noted on telemetry seen and evaluated by physical therapy deemed safe for discharge home. Patient had CT scan of chest, abdomen and pelvis for internal evaluation for her non-Hodgkin's lymphoma. Patient discharge with outpatient follow-up. DISCHARGE MEDICATIONS: Please see below. ALLERGIES: Please see below. PHYSICAL EXAMINATION ON DISCHARGE: VITAL SIGNS: Please see below. GENERAL: NAD HEENT: NC/AT Lungs: CTA B/L Heart: +S1S2, RRR Abd: soft, NT, +BS Ext: no edema LABORATORY DATA: Please see below. ACTIVITY: [As tolerated]. DISCHARGE INSTRUCTIONS: 1. Follow up with PCP in 3-5 days 2. Follow up oncology as directed. DISCHARGE CONDITION: [Stable]. TIME SPENT ON DISCHARGE: 35 minutes. Vital Signs/I&Os Vital Signs Date Time Temp Pulse Resp B/P (MAP) Pulse Ox O2 Delivery O2 Flow Rate FiO2 06/06/20 12:00 96.6 72 16 138/75 (96) 97 Room Air I&O- Last 24 Hours up to 6 AM 06/06/20 06:00 Intake Total 0 ml Output Total 150 ml Balance -150 ml Laboratory Data Labs 24H Laboratory Tests 2 06/05/20 15:15: Immature Granulocyte % (Auto) 0.2, Neutrophils (%) (Auto) 59.5, Lymphocytes (%) (Auto) 28.4, Monocytes (%) (Auto) 8.8H, Eosinophils (%) (Auto) 2.4, Basophils (%) (Auto) 0.7, Neutrophils # (Auto) 2.5, Lymphocytes # (Auto) 1.2L, Monocytes # (Auto) 0.4, Eosinophils # (Auto) 0.1, Basophils # (Auto) 0.0, Nucleated Red Blood Cells % (auto) 0.0, Anion Gap 3L, Glomerular Filtration Rate 51.9, Calcium Level 9.7, Total Bilirubin 0.5, Direct Bilirubin 0.1, Aspartate Amino Transf (AST/SGOT) 22, Alanine Aminotransferase (ALT/SGPT) 22, Alkaline Phosphatase 61, Total Creatine Kinase 64, Creatine Kinase MB 1.1, Creatine Kinase MB Relative Index 1.72, Troponin I < 0.02, Total Protein 6.9, Albumin 3.7, Albumin/Globulin Ratio 1.2 06/05/20 19:32: Coronavirus (COVID-19)(PCR) NEGATIVE 06/06/20 05:30: Nucleated Red Blood Cells % (auto) 0.0, Anion Gap 3L, Glomerular Filtration Rate 47.9, Calcium Level 8.8, Total Bilirubin 0.4, Aspartate Amino Transf (AST/SGOT) 17, Alanine Aminotransferase (ALT/SGPT) 19, Alkaline Phosphatase 52, Total Protein 6.5, Albumin 3.1L, Albumin/Globulin Ratio 0.9L, Magnesium Level 2.0 CBC/BMP Laboratory Tests 06/05/20 15:15 06/06/20 05:30 Discharge Medications Scheduled Atorvastatin Calcium (Atorvastatin Calcium) 10 Mg Tab, 10 MG PO QHS, (Reported) Biotin (Biotin) 1,000 Mcg Tab.chew, 1,000 MCG PO DAILY, (Reported) Buspirone HCl (Buspirone HCl) 5 Mg Tab, 5 MG PO BID, (Reported) Calcium Citrate Malate/Vit D3 (Calcium Citrate Malate with D) 1 Each Tablet, 1 TAB PO DAILY, (Reported) Cholecalciferol (Vitamin D3) (Vitamin D3) 1,000 Unit Tablet, 1,000 UNITS PO DAILY, (Reported) Lisinopril (Lisinopril) 10 Mg Tablet, 10 MG PO QHS, (Reported) Metoprolol Tartrate (Metoprolol Tartrate) 50 Mg Tablet, 50 MG PO DAILY, (Reported) Rivaroxaban (Xarelto) 20 Mg Tab, 20 MG PO QPM, (Reported) Scheduled PRN Alprazolam (Alprazolam) 0.5 Mg Tablet, 0.25 MG PO BID PRN for ANXIETY, (Reported) Allergies Coded Allergies: hydralazine (Verified Allergy, Severe, SVT, 06/05/20) codeine (Verified Adverse Reaction, Mild, Abd pain, Vomiting, 09/22/18) morphine (Verified Adverse Reaction, Mild, Abd pain, Vomiting, 09/22/18) ELIZABETH UGALDE MD Jun 06, 2020 14:26
--- NOTE | 2020-06-07 09:27 | ECHO ---
DATE OF PROCEDURE: 06/06/2020 Age: 69 Gender: Female Height: 165 cm Weight: 67 kg REFERRING PHYSICIAN: Jason Damian MD and Bakari Kaplan DO. INDICATION: Arrhythmia. MEASUREMENTS: IVS 0.8 cm LV 5.6 cm LVPW 0.8 cm LA 3.3 cm Aorta 3.1 cm RV 2.8 cm IVC 1.1 cm Left atrial volume index 22 mL/m2 Mitral E wave velocity 82 cm/s Mitral A wave 65 cm/s E prime septal 6.7 cm/s E prime lateral 6.7 cm/s FINDINGS: This study is of acceptable technical quality. Underlying likely sinus rhythm, even though the EKG recording was of very poor quality. Left ventricle is normal size and has normal contractility. Estimated LVEF 65% to 70%. I do not appreciate any segmental wall motion abnormalities. The right ventricle also appears to be normal size and systolic function. Both atria appear normal. All four cardiac valves were reasonably well seen and appear normal for patients age. Trivial pericardial effusion is noted. Inferior vena cava is of normal size and appropriately collapses with inspiration, indicative of normal central venous pressure. Aortic root, aortic arch, and visualized segment of abdominal aorta all appear normal. Doppler interrogation reveals a competent aortic valve. There is mild mitral insufficiency and no significant tricuspid insufficiency. Trace pulmonic insufficiency seen. Mitral inflow pattern and tissue Doppler imaging of the mitral annulus revealed likely normal diastolic function, even though tissue Doppler velocities of the mitral annulus are reduced. CONCLUSIONS: 1. Study is of acceptable technical quality, underlying sinus rhythm (poor quality EKG recording though). 2. Normal LV size with normal LV systolic and probably also normal diastolic function. 3. No significant valvular disease. 4. Normal central venous pressure. 5. Unable to estimate pulmonary artery pressure, but no signs to suggest significant pulmonary hypertension. MTDD
== END 2020-06-06 15:45 | disposition home or self-care (01) ==
LOC: M ED 14:36 → M ED INP 14:37 → M PCU 21:31
PROVIDERS: ADMIT General Practice; ATTEND Family Medicine
DX: I16.0 Hypertensive urgency (principal); C85.90 Non-Hodgkin lymphoma, unspecified, unspecified site; R51.9 Headache, unspecified; R29.818 Other symptoms and signs involving the nervous system; Z85.3 Personal history of malignant neoplasm of breast; I50.30 Unspecified diastolic (congestive) heart failure; I48.91 Unspecified atrial fibrillation; G47.30 Sleep apnea, unspecified; I67.82 Cerebral ischemia; F41.9 Anxiety disorder, unspecified; Z79.899 Other long term (current) drug therapy; Z79.01 Long term (current) use of anticoagulants; Z92.21 Personal history of antineoplastic chemotherapy; Z88.5 Allergy status to narcotic agent
CPT/HCPCS: 36415; 70450; 70544; 70551; 71045; 71260; 74177; 80053; 82248; 82550; 82553; 83735; 84484; 85025; 85027; 93005; 93306; 96374; 96375; 96376; 97161; 99285; G0378; J0153; J0360; J1885; J2060; Q9963; Q9967; U0002

== ENCOUNTER → 2020-06-22 | Outpatient (REF) | payer MEDICARE ==
[~2020-06-22] MED LIST changes: +ALPR0.5T3 PO; +BUSP10TA; -IBUP1TAB5 PO; +IBUP40TA PO; +LISI-538 PO; +LISI10TA4 PO; -LISI20TA33 PO
== END ==
LOC: M LAB REF 14:02
DX: D24.1 Benign neoplasm of right breast (principal)

== ENCOUNTER 2020-08-14 20:19 | Emergency (ER) | payer MEDICARE ==
[~2020-08-14] VITALS: Ht 165.1 cm; Wt 65.9 kg
[~2020-08-14 20:19] MED LIST changes: +IBUP1TAB5 PO; -IBUP40TA PO; -LISI-538 PO; +LISI10TA22 PO; -LISI10TA4 PO; +LISI20TA33 PO
[2020-08-14 20:49] LABS: BASO % 0.5 % (0.0-1.0); EOS # 0.1 10^3/uL (0.0-0.5); EOS % 2.2 % (0.0-3.0); HEMATOCRIT 38.4 % (36.0-47.0); HEMOGLOBIN 12.6 g/dl (12.0-15.5); LYMPH # 2.3 10^3/uL (1.5-5.0); LYMPH % 38.5 % (24.0-44.0); MEAN CORPUSCULAR HEMOGLOBIN 33.2 pg (27.0-33.0); MEAN CORPUSCULAR HGB CONC 32.8 g/dl (32.0-36.5); MEAN CORPUSCULAR VOLUME 101.1 fl (80.0-96.0); MONO # 0.6 10^3/uL (0.0-0.8); MONO % 9.4 % (2.0-8.0); NEUTROPHILS # 2.9 10^3/uL (1.5-8.5); NEUTROPHILS % 49.2 % (36.0-66.0); PLATELET COUNT, AUTOMATED 261 10^3/uL (150-450); WHITE BLOOD COUNT 5.9 10^3/uL (4.0-10.0)
--- NOTE | 2020-08-14 21:22 | REPVR ---
PROCEDURE INFORMATION: Exam: XR Chest Exam date and time: 08/14/2020 8:58 PM Age: 69 years old Clinical indication: Chest pain; Type not specified TECHNIQUE: Imaging protocol: XR of the chest Views: 1 view. COMPARISON: CT Chest with contrast 06/06/2020 12:59 PM FINDINGS: Lungs: Unremarkable. No consolidation. Pleural spaces: Unremarkable. No pleural effusion. No pneumothorax. Heart/Mediastinum: Borderline cardiomegaly. Bones/joints: Unremarkable. IMPRESSION: 1. Borderline cardiomegaly. 2. No acute findings. Electronically signed by: Joey Owen On 08/14/2020 21:22:12 PM
[2020-08-14 21:26] VITALS: BP 179/119
[2020-08-14 21:30] LABS: BLOOD UREA NITROGEN 17 MG/DL (7-18); CALCIUM LEVEL 8.7 MG/DL (8.8-10.2); CARBON DIOXIDE LEVEL 30 MEQ/L (21-32); CHLORIDE LEVEL 105 MEQ/L (98-107); CK-MB VALUE MASS 1.6 NG/ML (<3.6); CPK CREATINE PHOSPHOKINASE 101 U/L (26-192); CREATININE FOR GFR 1.13 MG/DL (0.55-1.30); GLOMERULAR FILTRATION RATE 50.8 (>45); GLUCOSE, FASTING 125 MG/DL (70-100); MB/CK RELATIVE INDEX 1.58 (< OR =4); POTASSIUM SERUM 3.7 MEQ/L (3.5-5.1); SODIUM LEVEL 141 MEQ/L (136-145); TROPONIN I < 0.02 NG/ML (< 0.10)
[2020-08-14 22:45] VITALS: O2SAT 98
--- NOTE | 2020-08-15 00:08 | ECGEPIP ---
[facility] Test Date: 2020-08-14 Pat Name: LAM LAWRENCE Department: Room: - Gender: Female Steel Burner: KIRT : 1950 Requested By: NICOLE Thibodeaux Order Number: [id number] Reading MD: Riky Diaz Measurements Intervals [place] Rate: 61 P: [place]: QRS: 32 QRSD: 74 T: 12 QT: 378 QTc: 380 Interpretive Statements Atrial fibrillation with a controlled ventricular rate Possible Septal infarct , age undetermined Last tracing on 08/14/20 at 20:31. A Fib with a rapid ventricular rate was noted. Electronically Signed on 08-15-2020 0:08:19 EDT by Riky Diaz
--- NOTE | 2020-08-15 00:10 | ECGEPIP ---
[facility] Test Date: 2020-08-14 Pat Name: LAM LAWRENCE Department: Room: - Gender: Female Medical Library Assistant: CAREN : 1950 Requested By: NICOLE Thibodeaux Order Number: [id number] Reading MD: Riky Diaz Measurements Intervals [place] Rate: 61 P: 61 IN: 246 QRS: 36 QRSD: 80 T: 15 QT: 444 QTc: 446 Interpretive Statements Sinus rhythm with 1st degree AV block Low voltage QRS, chest leads Possible Septal infarct , age undetermined Compared to prior tracings(2) in the system, Atrial Fib was present. Electronically Signed on 08-15-2020 0:09:37 EDT by Riky Daiz
[2020-08-15 00:50] VITALS: BP 110/70
--- NOTE | 2020-08-15 17:33 | ECGEPIP ---
[facility] - ED Test Date: 2020-08-14 Pat Name: LAM LAWRENCE Department: Room: - Gender: Female Political Analyst: LAILA : 1950 Requested By: NICOLE Thibodeaux Order Number: [id number] Reading MD: Kirstie Kearns Measurements Intervals [place] Rate: 154 P: [place]: QRS: 49 QRSD: 82 T: -63 QT: 308 QTc: 493 Interpretive Statements Atrial fibrillation with rapid ventricular response Septal infarct , age undetermined NSTTW abnormalities 06/05/20 sius rhythm Electronically Signed on 08-15-2020 17:32:50 EDT by Kirstie Kearns
== END 2020-08-15 00:55 | disposition home or self-care (01) ==
LOC: M ED 20:19
DX: I48.0 Paroxysmal atrial fibrillation (principal); I44.0 Atrioventricular block, first degree; E78.5 Hyperlipidemia, unspecified; E83.51 Hypocalcemia; I10 Essential (primary) hypertension; Z79.899 Other long term (current) drug therapy; Z88.6 Allergy status to analgesic agent; Z88.8 Allergy status to other drugs, medicaments and biological substances

== ENCOUNTER 2020-09-03 06:02 | Emergency (ER) | payer MEDICARE ==
[~2020-09-03] VITALS: Ht 152.4 cm; Wt 65.4 kg
[2020-09-03 06:39] VITALS: BP 150/96
[2020-09-03 06:42] LABS: HEMATOCRIT 38.3 % (36.0-47.0); HEMOGLOBIN 12.7 g/dl (12.0-15.5); MEAN CORPUSCULAR HEMOGLOBIN 33.1 pg (27.0-33.0); MEAN CORPUSCULAR HGB CONC 33.2 g/dl (32.0-36.5); MEAN CORPUSCULAR VOLUME 99.7 fl (80.0-96.0); PLATELET COUNT, AUTOMATED 239 10^3/uL (150-450); RED BLOOD COUNT 3.84 10^6/uL (4.00-5.40); WHITE BLOOD COUNT 5.8 10^3/uL (4.0-10.0)
[2020-09-03 06:52] LABS: INR 1.67
[2020-09-03 07:21] LABS: ALT/SGPT 18 U/L (12-78); BILIRUBIN,TOTAL 0.6 MG/DL (0.2-1.0); BLOOD UREA NITROGEN 18 MG/DL (7-18); CALCIUM LEVEL 9.6 MG/DL (8.8-10.2); CARBON DIOXIDE LEVEL 27 MEQ/L (21-32); CHLORIDE LEVEL 106 MEQ/L (98-107); CK-MB VALUE MASS 1.5 NG/ML (<3.6); CPK CREATINE PHOSPHOKINASE 99 U/L (26-192); CREATININE FOR GFR 0.95 MG/DL (0.55-1.30); GLOMERULAR FILTRATION RATE > 60.0 (>45); GLUCOSE, FASTING 111 MG/DL (70-100); MB/CK RELATIVE INDEX 1.52 (< OR =4); POTASSIUM SERUM 3.6 MEQ/L (3.5-5.1); SODIUM LEVEL 139 MEQ/L (136-145); TOTAL PROTEIN 7.3 GM/DL (6.4-8.2); TROPONIN I < 0.02 NG/ML (< 0.10)
--- NOTE | 2020-09-03 09:36 | ECGEPIP ---
[facility] - ED Test Date: 2020-09-03 Pat Name: LAM LAWRENCE Department: Room: - Gender: Female Senior Pl Sql Developer: CAREN : 1950 Requested By: Kaz Maciel Order Number: [id number] Reading MD: Juve Rivero Measurements Intervals [place] Rate: 134 P: [place]: QRS: 23 QRSD: 92 T: 253 QT: 324 QTc: 483 Interpretive Statements Atrial fibrillation with rapid ventricular response with premature ventricular or aberrantly conducted complexes Nonspecific ST and T wave abnormality RHYTHM/RATE CHANGE COMPARED TO 08/14/20 Electronically Signed on 09-03-2020 9:35:54 EDT by Juve Rivero
[2020-09-03 10:40] VITALS: BP 126/65
== END 2020-09-03 10:45 | disposition home or self-care (01) ==
LOC: M ED 06:02
DX: I48.91 Unspecified atrial fibrillation (principal); Z85.72 Personal history of non-Hodgkin lymphomas; Z79.01 Long term (current) use of anticoagulants; Z79.899 Other long term (current) drug therapy; Z88.5 Allergy status to narcotic agent; Z88.8 Allergy status to other drugs, medicaments and biological substances

== ENCOUNTER → 2020-09-05 | Outpatient (CLI) | payer MEDICARE ==
--- NOTE | 2020-09-05 10:01 | REP ---
INDICATION: PATH CONCORDANT W/NR STEREO 06/22/20. COMPARISON: Mammogram 04/15/2020, 05/05/2020, 06/22/2020. TECHNIQUE: Stereotactic biopsy was performed of a nodular opacity in the right breast 06/22/2020. FINDINGS: The pathology results are concordant with the imaging findings. IMPRESSION: The pathology results are concordant with the imaging findings. However, I would recommend repeat mammogram of the right breast to ensure that the appropriate area was biopsied and that the imaging findings remain stable. <Electronically signed by Fran French > 09/05/20 0957
== END ==
LOC: M RAD 08:56
PROVIDERS: ATTEND Surgery
DX: N60.11 Diffuse cystic mastopathy of right breast (principal)

== ENCOUNTER → 2020-09-05 | Outpatient (CLI) | payer MEDICARE | LOC: M PLALAB 11:40 | PROVIDERS: ATTEND Surgery | DX: Z13.79 Encounter for other screening for genetic and chromosomal anomalies (principal) ==

== ENCOUNTER → 2020-09-09 | Outpatient (CLI) | payer MEDICARE ==
[~2020-09-09] MED LIST changes: +PROHANCE 279.3MG/ML 15ML VIAL As Ordered ONE
--- NOTE | 2020-09-09 18:40 | REP ---
INDICATION: NIPPLE ANOMALY. History of left breast cancer and atypical ductal hyperplasia status post lumpectomy and radiation therapy on the left. Right breast biopsy. Pain at nipple. High risk screening. Stereotactic needle biopsy right breast performed 22 June 2020 produce a diagnosis of fibrocystic changes including sclerosing adenosis. History of left breast carcinoma 2006. There is also history of non-Hodgkin's lymphoma. COMPARISON: Comparison mammography May 05, 2020 and April 15, 2020. Comparison imaging June 22, 2020. TECHNIQUE: Three Natalie MRI imaging was performed with a dedicated breast coil. Axial, coronal, and sagittal T1 and T2 weighted scans were obtained with and without fat saturation in the usual fashion. The study includes dynamically acquired post gadolinium-enhanced imaging with image subtraction. Maximum intensity projection and multi planar reformation imaging is included as well. This study is interpreted with the aid of [employer], an FDA approved computer aided detection (CAD) software program, on a dedicated breast MRI workstation. The gadolinium enhancement dose is 13 mL of intravenous ProHance. FINDINGS: There is a moderate pattern of fibroglandular tissue seen bilaterally. There is a needle biopsy marker clip device in the right breast posterior 3rd at approximately the 5 o'clock position consistent with recent stereotactic needle biopsy spot site. There is small nonenhancing area of low T1 low T2 signal intensity consistent with residual hematoma. No suspicious abnormality is seen here. There are post treatment changes with micrometallic artifact left breast. No suspicious morphologic abnormality is observed on MRI imaging of either breast. There is no evidence of axillary adenopathy on either side. No breast cystic changes seen. No internal mammary mass or adenopathy is appreciated. There is a minimal pattern of background parenchymal enhancement. No suspicious morphologic abnormality is observed on either side. Dynamically acquired sequential post gadolinium enhanced images show no suspicious area of enhancement and/or washout in either breast to suggest malignancy. Subtraction images are unremarkable.. No abnormality is noted in either nipple. IMPRESSION: BI-RADS category BI-RADS category 2 benign bilateral breast MRI findings. <Electronically signed by John Paul Valladares > 09/09/20 [id number]
== END ==
LOC: M RAD 15:44
PROVIDERS: ATTEND Surgery
DX: N60.99 Unspecified benign mammary dysplasia of unspecified breast (principal); Q83.9 Congenital malformation of breast, unspecified
CPT/HCPCS: A9576; C8908

== ENCOUNTER 2020-09-15 21:11 | Emergency (ER) | payer MEDICARE ==
[~2020-09-15] VITALS: Ht 162.6 cm; Wt 66.4 kg
[~2020-09-15 21:11] MED LIST changes: -PROHANCE 279.3MG/ML 15ML VIAL As Ordered ONE
[2020-09-15] MEDS ORDERED: NS 1,000 ML IV SCH (21:25)
[2020-09-15] MEDS ORDERED: LORazepam 2 MG/ML VIAL IV STA (21:30)
[2020-09-15] MEDS ORDERED: FLECAINIDE 50MG TABLET PO ONE ×2 (21:30→23:30)
[2020-09-15 21:42] LABS: BASO % 0.5 % (0.0-1.0); EOS # 0.1 10^3/uL (0.0-0.5); EOS % 1.6 % (0.0-3.0); HEMATOCRIT 37.6 % (36.0-47.0); HEMOGLOBIN 12.4 g/dl (12.0-15.5); LYMPH # 1.7 10^3/uL (1.5-5.0); LYMPH % 29.1 % (24.0-44.0); MEAN CORPUSCULAR HEMOGLOBIN 32.9 pg (27.0-33.0); MEAN CORPUSCULAR VOLUME 99.7 fl (80.0-96.0); MONO # 0.5 10^3/uL (0.0-0.8); MONO % 9.3 % (2.0-8.0); NEUTROPHILS # 3.4 10^3/uL (1.5-8.5); NEUTROPHILS % 59.3 % (36.0-66.0); PLATELET COUNT, AUTOMATED 270 10^3/uL (150-450); RED BLOOD COUNT 3.77 10^6/uL (4.00-5.40); WHITE BLOOD COUNT 5.7 10^3/uL (4.0-10.0)
[2020-09-15] MEDS ORDERED: FLEC25TA PO (21:57)
[2020-09-15] MEDS ORDERED: NOXI1TAB PO (21:57)
[2020-09-15 22:01] LABS: INR 1.4; PROTHROMBIN TIME 17.4 SECONDS (12.5-14.3)
[2020-09-15 22:21] LABS: ALBUMIN 4.1 GM/DL (3.2-5.2); ALT/SGPT 19 U/L (12-78); BILIRUBIN,DIRECT < 0.1 MG/DL (0.0-0.2); BILIRUBIN,TOTAL 0.4 MG/DL (0.2-1.0); BLOOD UREA NITROGEN 14 MG/DL (7-18); CALCIUM LEVEL 9.6 MG/DL (8.8-10.2); CARBON DIOXIDE LEVEL 33 MEQ/L (21-32); CHLORIDE LEVEL 103 MEQ/L (98-107); CK-MB VALUE MASS 1.4 NG/ML (<3.6); CPK CREATINE PHOSPHOKINASE 102 U/L (26-192); CREATININE FOR GFR 1.02 MG/DL (0.55-1.30); GLOMERULAR FILTRATION RATE 57.2 (>45); GLUCOSE, FASTING 108 MG/DL (70-100); MB/CK RELATIVE INDEX 1.37 (< OR =4); POTASSIUM SERUM 3.6 MEQ/L (3.5-5.1); SODIUM LEVEL 139 MEQ/L (136-145); TOTAL PROTEIN 7.4 GM/DL (6.4-8.2); TROPONIN I < 0.02 NG/ML (< 0.10)
--- NOTE | 2020-09-15 22:55 | REPVR ---
PROCEDURE INFORMATION: Exam: XR Chest Exam date and time: 09/15/2020 10:15 PM Age: 69 years old Clinical indication: Chest pain; Type not specified TECHNIQUE: Imaging protocol: XR of the chest. Views: 1 view. COMPARISON: 1. CR PORTABLE CHEST X-RAY 2020-08-14 20:[address] Chest with contrast 2020-06-06 12:59 3. CR Chest, 1 view 2020-06-05 19:[address] Chest with contrast 2019-11-17 09:23 FINDINGS: Lungs: Unremarkable. No consolidation. Pleural spaces: Unremarkable. No pleural effusion. No pneumothorax. Heart/Mediastinum: Unremarkable. No cardiomegaly. Bones/joints: Unremarkable. IMPRESSION: No acute findings. Electronically signed by: Ar Vargas On 09/15/2020 22:55:19 PM
[2020-09-15] MEDS ORDERED: DIGOXIN INJ 0.5 MG/2 ML AMP (J1160) IV STA (23:28)
[2020-09-15] MEDS ORDERED: NS 1,000 ML IV ONE (23:30)
[2020-09-16 05:30] VITALS: BP 150/89
--- NOTE | 2020-09-16 18:08 | ECGEPIP ---
[facility] - ED Test Date: 2020-09-15 Pat Name: LAM LAWRENCE Department: Room: - Gender: Female Neurology Director: EHSAN : 1950 Requested By: ROSEANNA DE LA CRUZ Order Number: [id number] Reading MD: Ar Abernathy Measurements Intervals [place] Rate: 135 P: [place]: QRS: 8 QRSD: 94 T: 106 QT: 304 QTc: 456 Interpretive Statements Atrial flutter with variable AV block Delayed anterior R wave progression Nonspecific ST-T wave abnormalities Similar to tracing done 09-03-20 Electronically Signed on 09-16-2020 18:08:17 EDT by Ar Abernathy
--- NOTE | 2020-09-16 18:10 | ECGEPIP ---
[facility] - ED Test Date: 2020-09-16 Pat Name: LAM LAWRENCE Department: Room: - Gender: Female Six Horse Hitch Driver: : 1950 Requested By: AR Arcos Order Number: [id number] Reading MD: Ar Abernathy Measurements Intervals [place] Rate: 84 P: 47 [place]: 260 QRS: 21 QRSD: 94 T: 34 QT: 400 QTc: 472 Interpretive Statements Sinus rhythm with 1st degree AV block Anteroseptal infarct , age undetermined previous tracing done 09-15-20 showed atrial flutter with rapid rate Electronically Signed on 09-16-2020 18:10:23 EDT by Ar Abernathy
== END 2020-09-16 05:35 | disposition home or self-care (01) ==
LOC: M ED 21:11
DX: I48.91 Unspecified atrial fibrillation (principal); I44.0 Atrioventricular block, first degree; F41.9 Anxiety disorder, unspecified; Z79.01 Long term (current) use of anticoagulants; Z79.899 Other long term (current) drug therapy; Z88.5 Allergy status to narcotic agent
CPT/HCPCS: 71045; 80048; 80076; 82550; 82553; 84443; 84484; 85025; 85610; 85730; 93005; 93041; 94760; 99285; J1160; J2060

== ENCOUNTER 2020-09-22 13:24 | Emergency (ER) | payer MEDICARE ==
[~2020-09-22] VITALS: Ht 154.9 cm; Wt 65.0 kg
[~2020-09-22 13:24] MED LIST changes: +FLEC25TA PO; +NOXI1TAB PO
--- NOTE | 2020-09-22 13:55 | REP ---
INDICATION: CHEST PAIN. COMPARISON: None. TECHNIQUE: Single portable AP view of the chest was performed. FINDINGS: There is no acute infiltrate or pulmonary edema. Lungs are clear. The heart is not significantly enlarged. The mediastinal silhouette is unremarkable. The visualized osseous structures are intact. IMPRESSION: No acute pulmonary disease. <Electronically signed by rFan French > 09/22/20 [id number]
[2020-09-22 14:14] LABS: BASO % 0.6 % (0.0-1.0); EOS % 0.7 % (0.0-3.0); HEMATOCRIT 41.1 % (36.0-47.0); HEMOGLOBIN 13.8 g/dl (12.0-15.5); LYMPH # 1.2 10^3/uL (1.5-5.0); LYMPH % 21.4 % (24.0-44.0); MEAN CORPUSCULAR HEMOGLOBIN 33.4 pg (27.0-33.0); MEAN CORPUSCULAR HGB CONC 33.6 g/dl (32.0-36.5); MEAN CORPUSCULAR VOLUME 99.5 fl (80.0-96.0); MONO # 0.4 10^3/uL (0.0-0.8); MONO % 7.7 % (2.0-8.0); NEUTROPHILS # 3.8 10^3/uL (1.5-8.5); NEUTROPHILS % 69.2 % (36.0-66.0); PLATELET COUNT, AUTOMATED 287 10^3/uL (150-450); RED BLOOD COUNT 4.13 10^6/uL (4.00-5.40); WHITE BLOOD COUNT 5.4 10^3/uL (4.0-10.0)
[2020-09-22 14:24] LABS: INR 1.27; PROTHROMBIN TIME 16.1 SECONDS (12.5-14.3)
[2020-09-22 14:51] LABS: ALBUMIN 4.1 GM/DL (3.2-5.2); ALT/SGPT 19 U/L (12-78); BILIRUBIN,DIRECT 0.1 MG/DL (0.0-0.2); BILIRUBIN,TOTAL 0.5 MG/DL (0.2-1.0); BLOOD UREA NITROGEN 16 MG/DL (7-18); CALCIUM LEVEL 9.6 MG/DL (8.8-10.2); CARBON DIOXIDE LEVEL 29 MEQ/L (21-32); CHLORIDE LEVEL 103 MEQ/L (98-107); CK-MB VALUE MASS < 1.0 NG/ML (<3.6); CPK CREATINE PHOSPHOKINASE 79 U/L (26-192); CREATININE FOR GFR 0.99 MG/DL (0.55-1.30); GLOMERULAR FILTRATION RATE 59.2 (>45); GLUCOSE, FASTING 103 MG/DL (70-100); MB/CK RELATIVE INDEX 1.27 (< OR =4); POTASSIUM SERUM 4.2 MEQ/L (3.5-5.1); SODIUM LEVEL 138 MEQ/L (136-145); TOTAL PROTEIN 7.6 GM/DL (6.4-8.2); TROPONIN I < 0.02 NG/ML (< 0.10)
[2020-09-22 18:00] VITALS: BP 176/113
--- NOTE | 2020-09-23 09:35 | ECGEPIP ---
[facility] - ED Test Date: 2020-09-22 Pat Name: LAM LAWRENCE Department: Room: - Gender: Female Die Sinker: DALE : 1950 Requested By: SUJIT Arcos Order Number: [id number] Reading MD: Kirstie Kearns Measurements Intervals [place] Rate: 73 P: 48 ID: [id number] QRS: 8 QRSD: 122 T: 28 QT: 446 QTc: 491 Interpretive Statements Sinus rhythm with 1st degree AV block Nonspecific intraventricular conduction delay prolonged qtc possible anteroseptal infarct Electronically Signed on 09-23-2020 9:34:50 EDT by Kirstie Kearns
== END 2020-09-22 18:36 | disposition home or self-care (01) ==
LOC: M ED 13:24
DX: I10 Essential (primary) hypertension (principal); F41.9 Anxiety disorder, unspecified; I48.91 Unspecified atrial fibrillation; Z79.899 Other long term (current) drug therapy; Z79.01 Long term (current) use of anticoagulants; Z88.5 Allergy status to narcotic agent; Z88.8 Allergy status to other drugs, medicaments and biological substances

== ENCOUNTER 2020-10-01 07:51 | Emergency (ER) | payer MEDICARE ==
[~2020-10-01] VITALS: Ht 165.1 cm; Wt 62.7 kg
[2020-10-01] MEDS ORDERED: METO1TAB87 PO (09:32)
[2020-10-01 09:51] VITALS: BP 131/78
--- NOTE | 2020-10-01 13:32 | ECGEPIP ---
[facility] - ED Test Date: 2020-10-01 Pat Name: LAM LAWRENCE Department: Room: - Gender: Female Communications Maintainer: JOSE : 1950 Requested By: Juve Plummer Order Number: [id number] Reading MD: Juve Rivero Measurements Intervals [place] Rate: 97 P: [place]: QRS: 30 QRSD: 90 T: 261 QT: 352 QTc: 447 Interpretive Statements Atrial flutter with variable AV block ST & T wave abnormality, consider anterolateral ischemia RHYTHM/RATE CHANGE COMPARED TO 09/22/20 Electronically Signed on 10-01-2020 13:31:45 EDT by Juve Rivero
== END 2020-10-01 10:04 | disposition home or self-care (01) ==
LOC: M ED 07:51
DX: I48.3 Typical atrial flutter (principal); I44.30 Unspecified atrioventricular block; I48.91 Unspecified atrial fibrillation; I10 Essential (primary) hypertension; F41.9 Anxiety disorder, unspecified; Z79.02 Long term (current) use of antithrombotics/antiplatelets; Z79.899 Other long term (current) drug therapy; Z88.5 Allergy status to narcotic agent; Z88.8 Allergy status to other drugs, medicaments and biological substances

== ENCOUNTER → 2020-10-21 | Outpatient (CLI) | payer MEDICARE ==
[~2020-10-21] MED LIST changes: +METO1TAB87 PO
--- NOTE | 2020-10-21 08:33 | REP ---
INDICATION: R10.2 PELVIC PAIN COMPARISON: None. TECHNIQUE: Transabdominal pelvic ultrasound followed by transvaginal examination for better evaluation of the endometrium and adnexa with color Doppler evaluation of the ovaries. FINDINGS: Bladder is unremarkable and measures 8.1 x 3.7 x 4.4 cm. Heterogeneous anteverted uterus measures 5.7 x 2.9 x 3.7 cm. Vague ill-defined anterior intramural fibroid with calcification is suspected. The endometrial complex measures 3.4 mm thickness and a small amount of endocervical fluid is identified and nonspecific. Ovaries are not identified on either transabdominal or transvaginal imaging. No pelvic fluid or adnexal mass lesion. IMPRESSION: Possible vague ill-defined anterior intramural degenerating fibroid. <Electronically signed by Zach Bell > 10/21/20 [id number]
== END ==
LOC: M WHC 07:29
PROVIDERS: ATTEND Obstetrics & Gynecology
DX: R10.2 Pelvic and perineal pain (principal); D25.9 Leiomyoma of uterus, unspecified

== ENCOUNTER 2020-11-02 12:11 | Emergency (ER) | payer MEDICARE ==
[~2020-11-02] VITALS: Ht 152.4 cm; Wt 62.7 kg
[2020-11-02 13:00] LABS: BASO % 0.9 % (0.0-1.0); EOS # 0.1 10^3/uL (0.0-0.5); EOS % 1.3 % (0.0-3.0); HEMATOCRIT 36.4 % (36.0-47.0); LYMPH # 1.1 10^3/uL (1.5-5.0); MEAN CORPUSCULAR HEMOGLOBIN 32.5 pg (27.0-33.0); MEAN CORPUSCULAR VOLUME 98.6 fl (80.0-96.0); MONO # 0.4 10^3/uL (0.0-0.8); MONO % 7.6 % (2.0-8.0); NEUTROPHILS # 3.1 10^3/uL (1.5-8.5); PLATELET COUNT, AUTOMATED 246 10^3/uL (150-450); RED BLOOD COUNT 3.69 10^6/uL (4.00-5.40); WHITE BLOOD COUNT 4.6 10^3/uL (4.0-10.0)
[2020-11-02 13:26] LABS: ALBUMIN 3.5 GM/DL (3.2-5.2); ALT/SGPT 15 U/L (12-78); BILIRUBIN,DIRECT 0.1 MG/DL (0.0-0.2); BILIRUBIN,TOTAL 0.5 MG/DL (0.2-1.0); BLOOD UREA NITROGEN 13 MG/DL (7-18); CALCIUM LEVEL 9.2 MG/DL (8.8-10.2); CARBON DIOXIDE LEVEL 29 MEQ/L (21-32); CHLORIDE LEVEL 104 MEQ/L (98-107); CK-MB VALUE MASS < 1.0 NG/ML (<3.6); CPK CREATINE PHOSPHOKINASE 84 U/L (26-192); CREATININE FOR GFR 1.07 MG/DL (0.55-1.30); GLUCOSE, FASTING 112 MG/DL (70-100); MB/CK RELATIVE INDEX 1.19 (< OR =4); POTASSIUM SERUM 3.7 MEQ/L (3.5-5.1); SODIUM LEVEL 141 MEQ/L (136-145); TOTAL PROTEIN 6.8 GM/DL (6.4-8.2); TROPONIN I < 0.02 NG/ML (< 0.10)
--- NOTE | 2020-11-02 14:17 | REP ---
INDICATION: HTN; ?cardiomegaly. COMPARISON: Multiple the latest 09/22/2020 also portable TECHNIQUE: . Portable FINDINGS: The superior mediastinal structures are midline. The heart is not enlarged. The diaphragmatic surfaces of the lungs are regular and the costophrenic angles are clear. The pulmonary kaur are clear. The visualized osseous structures are intact. The technique utilized in obtaining the radiograph has magnified the cardiac silhouette and attenuated the interstitial markings. . IMPRESSION: There is no acute cardiopulmonary disease. <Electronically signed by Jesus Manuel Linn > 11/02/20 1132
[2020-11-02 14:57] LABS: APPEARANCE, URINE CLEAR (CLEAR); BACTERIA, URINE AUTO NEGATIVE (NEGATIVE); BILIRUBIN, URINE AUTO NEGATIVE (NEGATIVE); BLOOD, URINE BLOOD NEGATIVE (NEGATIVE); COLOR, URINE COLORLESS (YELLOW); GLUCOSE, URINE (UA) AUTO NEGATIVE (NEGATIVE); KETONE, URINE AUTO NEGATIVE (NEGATIVE); LEUKOCYTE ESTERASE, URINE AUTO NEGATIVE (NEGATIVE); NITRITE, URINE AUTO NEGATIVE (NEGATIVE); PROTEIN, URINE AUTO NEGATIVE (NEGATIVE); RBC, URINE AUTO 1 /HPF (0-3); SPECIFIC GRAVITY URINE AUTO 1.004 (1.002-1.035); SQUAMOUS EPITHELIAL CELL UR AU 0 /HPF (0-6); UROBILINOGEN, URINE AUTO 0.2 mg/dL (0.0-2.0); WBC, URINE AUTO 0 /HPF (0-3)
[2020-11-02 15:15] VITALS: BP 129/77
--- NOTE | 2020-11-02 19:53 | ECGEPIP ---
[facility] - ED Test Date: 2020-11-02 Pat Name: LAM LAWRENCE Department: Room: - Gender: Female Slurry Control Tender: : 1950 Requested By: Norbert Plaza Order Number: [id number] Reading MD: Kirstie Kearns Measurements Intervals [place] Rate: 59 P: 60 [place]: 240 QRS: 12 QRSD: 90 T: 31 QT: 472 QTc: 467 Interpretive Statements Sinus bradycardia with 1st degree AV block NSTTW abnormalities Septal infarct , age undetermined prior atrial flutter 10/01/20 Electronically Signed on 11-02-2020 19:53:10 EDT by Kirstie Kearns
== END 2020-11-02 15:33 | disposition home or self-care (01) ==
LOC: M ED 12:11
DX: I10 Essential (primary) hypertension (principal); R00.1 Bradycardia, unspecified; I44.0 Atrioventricular block, first degree; I48.91 Unspecified atrial fibrillation; F41.9 Anxiety disorder, unspecified; Z85.72 Personal history of non-Hodgkin lymphomas; Z85.3 Personal history of malignant neoplasm of breast; Z79.01 Long term (current) use of anticoagulants; Z79.899 Other long term (current) drug therapy; Z88.5 Allergy status to narcotic agent; Z88.8 Allergy status to other drugs, medicaments and biological substances

== ENCOUNTER → 2020-12-12 | Outpatient (CLI) | payer MEDICARE ==
[~2020-12-12] MED LIST changes: +OMEP40CA4 PO; -OMEP40CA97 PO
[2020-12-12 10:03] LABS: CALCIUM LEVEL 8.6 MG/DL (8.8-10.2); CREATININE FOR GFR 1.22 MG/DL (0.55-1.30); GLOMERULAR FILTRATION RATE 46.4 (>39); POTASSIUM SERUM 3.7 MEQ/L (3.5-5.1)
== END ==
LOC: M WUC 08:01
PROVIDERS: ATTEND Internal Medicine Cardiovascular Disease
DX: I48.0 Paroxysmal atrial fibrillation (principal)

== ENCOUNTER → 2020-12-19 | Outpatient (CLI) | payer MEDICARE ==
[~2020-12-19] MED LIST changes: +AMIO200T3 PO
--- NOTE | 2020-12-26 13:13 | REP ---
INDICATION: R92.8 ABN MAMMO RT BREAST,6 MO POST BENIGN BIOPSY. COMPARISON: Multiple TECHNIQUE: Digital mammography was carried out on the right breast in the CC and MLO projections using both 2D and 3D modalities and compared to the prior exams. By history, the patient has no complaints of a palpable breast abnormality or other significant breast complaints. FINDINGS: The right breast is unchanged in size and shape. Once again, dense heterogenous fibroglandular elements are seen throughout the right breast to such a degree that the sensitivity of the mammogram in detecting cancers decreased. There are no daniele soft tissue densities or spiculated masses. There is no internal architectural distortion. Benign calcifications are again noted status quo. There is no skin thickening or nipple retraction. The Volpara volumetric breast density pattern is C IMPRESSION: BIRADS/ACR category 2 benign findings. There is no evidence of malignant alteration of the right breast. This mammogram was interpreted with the aid of an FDA-approved computer-aided detection system. I have no indication as to when the patient last had a CBE The patient letter being requested is M1. RECOMMENDATION: Repeat screening mammography recommended 1 year (for women over 40). <Electronically signed by Jesus Manuel Linn > 12/26/20 [id number]
== END ==
LOC: M WHC 08:05
PROVIDERS: ATTEND Surgery
DX: R92.8 Other abnormal and inconclusive findings on diagnostic imaging of breast (principal)
CPT/HCPCS: 77065; G0279

== ENCOUNTER → 2020-12-20 | Outpatient (CLI) | payer MEDICARE ==
[~2020-12-20] MED LIST changes: -AMIO200T3 PO
[2020-12-20 12:33] LABS: CALCIUM LEVEL 9.8 MG/DL (8.8-10.2); CREATININE FOR GFR 1.16 MG/DL (0.55-1.30); GLOMERULAR FILTRATION RATE 49.2 (>39); POTASSIUM SERUM 4.7 MEQ/L (3.5-5.1)
== END ==
LOC: M LAB 10:45
PROVIDERS: ATTEND Physician Assistant
DX: I10 Essential (primary) hypertension (principal)

== ENCOUNTER 2020-12-26 13:33 | Emergency (ER) | payer MEDICARE ==
[~2020-12-26] VITALS: Ht 165.1 cm; Wt 63.4 kg
[2020-12-26] MEDS ORDERED: AMIO200T3 PO (14:54)
[2020-12-26] MEDS ORDERED: LABETALOL 100MG/20ML VIAL IV STA (16:45)
[2020-12-26 17:11] LABS: BASO % 0.6 % (0.0-1.0); EOS % 0.8 % (0.0-3.0); HEMATOCRIT 40.1 % (36.0-47.0); HEMOGLOBIN 13.3 g/dl (12.0-15.5); LYMPH # 1.2 10^3/uL (1.5-5.0); LYMPH % 23.2 % (24.0-44.0); MEAN CORPUSCULAR HEMOGLOBIN 32.7 pg (27.0-33.0); MEAN CORPUSCULAR HGB CONC 33.2 g/dl (32.0-36.5); MEAN CORPUSCULAR VOLUME 98.5 fl (80.0-96.0); MONO # 0.5 10^3/uL (0.0-0.8); MONO % 8.7 % (2.0-8.0); NEUTROPHILS # 3.5 10^3/uL (1.5-8.5); NEUTROPHILS % 66.1 % (36.0-66.0); PLATELET COUNT, AUTOMATED 295 10^3/uL (150-450); RED BLOOD COUNT 4.07 10^6/uL (4.00-5.40); WHITE BLOOD COUNT 5.3 10^3/uL (4.0-10.0)
--- NOTE | 2020-12-26 17:18 | REP ---
INDICATION: CHEST PAIN. COMPARISON: 11/02/2020 FINDINGS: The technique utilized in obtaining the radiograph has magnified the cardiac silhouette and accentuated the interstitial markings. The superior mediastinal structures are midline. The cardiac silhouette is unremarkable in size, shape, and position. The diaphragmatic surfaces of the lungs are regular, and the costophrenic angles are clear. The pulmonary kaur are clear. The imaged osseous structures are intact. IMPRESSION: There is no acute cardiopulmonary disease. No significant change compared to the prior exam <Electronically signed by Jesus Manuel Linn > 12/26/20 [id number]
--- NOTE | 2020-12-26 17:19 | REP ---
INDICATION: schmitz on xaralto. COMPARISON: 06/05/2020. TECHNIQUE: CT brain performed in the axial plane. Coronal reconstruction images are performed. FINDINGS: There is mild atrophy. There are mild chronic periventricular small vessel ischemic changes. There is no midline shift or mass effect. French-white differentiation is well maintained. There is no acute intracranial hemorrhage or extra-axial fluid collection. Bone window examination is unremarkable. The visualized mastoid air cells and paranasal sinuses are clear. IMPRESSION: Mild stable chronic changes as discussed above. No acute intracranial hemorrhage, midline shift or mass effect. <Electronically signed by Fran French > 12/26/20 [id number]
[2020-12-26 17:44] LABS: BLOOD UREA NITROGEN 18 MG/DL (7-18); CALCIUM LEVEL 9.6 MG/DL (8.8-10.2); CARBON DIOXIDE LEVEL 27 MEQ/L (21-32); CHLORIDE LEVEL 107 MEQ/L (98-107); CK-MB VALUE MASS 1.5 NG/ML (<3.6); CPK CREATINE PHOSPHOKINASE 154 U/L (26-192); CREATININE FOR GFR 1.09 MG/DL (0.55-1.30); GLOMERULAR FILTRATION RATE 52.8 (>39); GLUCOSE, FASTING 82 MG/DL (70-100); MB/CK RELATIVE INDEX 0.97 (< OR =4); POTASSIUM SERUM 5.7 MEQ/L (3.5-5.1); SODIUM LEVEL 139 MEQ/L (136-145); TROPONIN I < 0.02 NG/ML (< 0.10)
[2020-12-26 17:54] LABS: INR 1.24
[2020-12-26 18:50] VITALS: BP 130/74
--- NOTE | 2020-12-26 20:01 | ECGEPIP ---
[facility] - ED Test Date: 2020-12-26 Pat Name: LAM LAWRENCE Department: Room: - Gender: Female Telemarketing Fundraiser: sushant : 1950 Requested By: ROSEANNA DE LA CRUZ Order Number: [id number] Reading MD: Kirstie Kearns Measurements Intervals [place] Rate: 65 P: 74 [place]: 224 QRS: -7 QRSD: 96 T: 33 QT: 460 QTc: 478 Interpretive Statements Sinus rhythm with 1st degree AV block Septal infarct , age undetermined NSTTW abnormalities similar 11/02/20 Electronically Signed on 12-26-2020 20:01:22 EDT by Kirstie Kearns
== END 2020-12-26 18:58 | disposition home or self-care (01) ==
LOC: M ED 17:26
DX: I16.0 Hypertensive urgency (principal); I44.0 Atrioventricular block, first degree; I51.9 Heart disease, unspecified; Z79.01 Long term (current) use of anticoagulants; Z79.899 Other long term (current) drug therapy; Z88.5 Allergy status to narcotic agent; Z88.8 Allergy status to other drugs, medicaments and biological substances

== ENCOUNTER → 2021-05-09 | Outpatient (CLI) | payer MEDICARE ==
[~2021-05-09] MED LIST changes: +AMIO200T3 PO; +BUSP10TA PO; +BUSP15TA47 PO; +LOSA50TA88 PO
--- NOTE | 2021-05-09 13:47 | REPMRS ---
Patient History The patient states she had a clinical breast exam in April. Patient is postmenopausal, has history of nonhodgkins lymphoma at age 67, had previous chemotherapy at age 67, and has history of breast cancer at age 58. [facility] for 10 years. Family history of breast cancer at age 45 in sister, prostate cancer at age 75 in father, unknown cancer at age 50 or over in maternal grandfather, colorectal cancer in sister. Stereotactic core biopsy of the right breast, June 22, 2020. Radiation therapy of the left breast. Took hormonal contraceptives for 2 years. Took unspecified hormones for 3 years. Patient states no breast complaints today. Patient has signed MRS History Sheet. Digital Woman Screen Mammo: May 09, 2021 - Exam #: [id number] Bilateral CC and MLO view(s) were taken. Technologist: Leslie Burton, Technologist Prior study comparison: December 19, 2020, right breast diagnostic unilateral mammo performed at [facility]. May 05, 2020, right breast digital mammo diagnostic unilateral, performed at [facility]. FINDINGS: The breast tissue is heterogeneously dense. This may lower the sensitivity of mammography. Screening. This patient?s lifetime risk for the development of invasive breast cancer can?t be calculated due to her age (less than 20 or greater than 85 years) or a prior history of in situ or invasive breast cancer. Digital screening (2D) mammography was performed bilaterally. Additionally, breast tomosynthesis (3D mammography) was performed bilaterally in the CC and MLO projections. Today's exam was compared to the prior exam/exams. By history, the patient has no complaints of a palpable breast abnormality or other significant breast complaints. The patient is status post lumpectomy/chemo radiation therapy due to breast carcinoma. The breasts are unchanged in size and shape.Once again, dense heterogenous fibroglandular elements are seen bilaterally in a stable appearing pattern but to such a degree that the sensitivity of the mammogram in detecting cancer is decreased. There are no daniele-areas of internal architectural distortion. There are no daniele-soft tissue densities or areas of spiculation.Once again, stable benign appearing calcifications are seen. There is unchanged post radiation skin thickening. IMPRESSION: BI-RADS Category 2- Benign Findings. There is no evidence of malignant alteration of the breasts. Routine bilateral screening mammogram recommended at its regularly scheduled annual interval. The Volpara volumetric breast density category is C, the breasts are heterogenously dense which may obscure small masses. This mammogram was read with the assistance of [employer],an FDA approved computer aided detection system for mammography. Due to the density of the breasts or Tyrer Cuzick score of 20% or greater, MRI/whole breast screening ultrasound is warranted. Negative x-ray reports should not delay surgical consultation if a dominant or clinically suspicious mass is present. Not all breast cancers can be identified by mammography. Therefore, we recommend that you continue to perform regular breast self-examination and physical examination and then promptly contact your physician of any concerns or changes. Adenosis and dense breasts may obscure an underlying neoplasm. Assessment: BI-RADS/ACR category 2 mammogram. Benign Findings. Recommendation Routine screening mammogram of both breasts in 1 year. Electronically Signed By: Jesus Manuel Linn DO 05/09/21 0971
== END ==
LOC: M WHC 12:44
PROVIDERS: ATTEND Surgery
DX: Z12.31 Encounter for screening mammogram for malignant neoplasm of breast (principal)

== ENCOUNTER → 2021-07-07 | Outpatient (CLI) | payer MEDICARE ==
[~2021-07-07] MED LIST changes: -AMIO200T3 PO; +AMIO200T49 PO; +LOSA50TA28 PO; -LOSA50TA88 PO; -PROC10TA4 PO; +PROC10TA5 PO
== END ==
LOC: M WUC 11:19
PROVIDERS: ATTEND Physician Assistant
DX: M79.642 Pain in left hand (principal); R93.89 Abnormal findings on diagnostic imaging of other specified body structures

== ENCOUNTER → 2021-10-03 | Outpatient (REF) | payer MEDICARE ==
[~2021-10-03] MED LIST changes: +CALC600T27 PO; -D31000TA2 PO; +SIME80CH6 PO; +VALS40TA9 PO; +VITA100093 PO
[2021-10-03 14:56] LABS: BLOOD UREA NITROGEN 23 MG/DL (7-18); CALCIUM LEVEL 9.4 MG/DL (8.8-10.2); CARBON DIOXIDE LEVEL 31 MEQ/L (21-32); CHLORIDE LEVEL 106 MEQ/L (98-107); CREATININE FOR GFR 0.94 MG/DL (0.55-1.30); GLOMERULAR FILTRATION RATE > 60.0 (>39); GLUCOSE, FASTING 82 MG/DL (70-100); POTASSIUM SERUM 3.8 MEQ/L (3.5-5.1); SODIUM LEVEL 140 MEQ/L (136-145)
== END ==
LOC: M WUC 14:11
PROVIDERS: ATTEND Nurse Practitioner Women's Health
DX: Z01.812 Encounter for preprocedural laboratory examination (principal)

== ENCOUNTER → 2021-10-20 | Outpatient (CLI) | payer MEDICARE ==
[~2021-10-20] MED LIST changes: +PROHANCE 279.3MG/ML 15ML VIAL As Ordered ONE
== END ==
LOC: M RAD 11:03
PROVIDERS: ATTEND Nurse Practitioner Women's Health
DX: N60.99 Unspecified benign mammary dysplasia of unspecified breast (principal); Z85.3 Personal history of malignant neoplasm of breast
CPT/HCPCS: A9576; C8908

== ENCOUNTER → 2022-01-04 | Outpatient (CLI) | payer MEDICARE ==
[~2022-01-04] MED LIST changes: -PROHANCE 279.3MG/ML 15ML VIAL As Ordered ONE
== END ==
LOC: M WHC 08:10
PROVIDERS: ATTEND Internal Medicine
DX: M85.88 Other specified disorders of bone density and structure, other site (principal)

== ENCOUNTER → 2022-01-17 | Outpatient (REF) | payer MEDICARE | LOC: M LAB REF 16:11 | PROVIDERS: ATTEND Internal Medicine | DX: M25.50 Pain in unspecified joint (principal) ==

== ENCOUNTER → 2022-02-14 | Outpatient (CLI) | payer MEDICARE | LOC: M PLAIMG 13:54 | PROVIDERS: ATTEND Internal Medicine | DX: R10.813 Right lower quadrant abdominal tenderness (principal) ==

== ENCOUNTER 2022-03-04 23:20 | Emergency (ER) | payer MEDICARE ==
[~2022-03-04] VITALS: Ht 165.1 cm; Wt 65.7 kg
[2022-03-04 23:49] LABS: BASO % 0.5 % (0.0-1.0); EOS # 0.1 10^3/uL (0.0-0.5); EOS % 1.8 % (0.0-3.0); HEMATOCRIT 33.9 % (36.0-47.0); HEMOGLOBIN 11.4 g/dl (12.0-15.5); LYMPH # 1.7 10^3/uL (1.5-5.0); LYMPH % 29.9 % (24.0-44.0); MEAN CORPUSCULAR HEMOGLOBIN 32.3 pg (27.0-33.0); MEAN CORPUSCULAR HGB CONC 33.6 g/dl (32.0-36.5); MONO # 0.5 10^3/uL (0.0-0.8); MONO % 8.7 % (2.0-8.0); NEUTROPHILS # 3.3 10^3/uL (1.5-8.5); NEUTROPHILS % 58.9 % (36.0-66.0); PLATELET COUNT, AUTOMATED 287 10^3/uL (150-450); RED BLOOD COUNT 3.53 10^6/uL (4.00-5.40); WHITE BLOOD COUNT 5.6 10^3/uL (4.0-10.0)
[2022-03-05] MEDS ORDERED: ONDANSETRON 4MG 2ML VIAL IV ONE ×2 (00:20→01:45)
[2022-03-05 00:26] LABS: CPK CREATINE PHOSPHOKINASE 180 U/L (26-192)
[2022-03-05 00:43] LABS: CALCIUM LEVEL 9.2 MG/DL (8.8-10.2); CREATININE FOR GFR 1.07 MG/DL (0.55-1.30); GLOMERULAR FILTRATION RATE 53.8 (>39); POTASSIUM SERUM 3.2 MEQ/L (3.5-5.1); THYROID STIMULATING HORMONE 2.09 uIU/ML (0.358-3.740)
[2022-03-05] MEDS ORDERED: ISOVUE-370 76% 100ML VIAL As Ordered ONE (01:35)
[2022-03-05] MEDS ORDERED: LABETALOL 100MG/20ML VIAL IV STA (02:01)
[2022-03-05 02:38] VITALS: BP 170/89
[2022-03-05] MEDS ORDERED: METOCLOPRAMIDE INJ 10MG/2ML VIAL (J2765 PER 1) IV ONE (02:50)
[2022-03-05 02:53] LABS: INR 1.91; PROTHROMBIN TIME 22.3 SECONDS (12.7-14.5)
[2022-03-05 02:54] LABS: PARTIAL THROMBOPLASTIN TIME 60.3 SECONDS (25.9-37.0)
[2022-03-05] MEDS ORDERED: niCARdipine IV 40 MG in IV 1 EA IV SCH (02:55)
[2022-03-05] MEDS ORDERED: ASPIRIN 81 MG CHEW TABLET PO ONE (04:05)
[2022-03-05 06:25] VITALS: BP 124/65
== END 2022-03-05 06:41 | disposition home or self-care (01) ==
LOC: M ED 23:20
DX: I63.9 Cerebral infarction, unspecified (principal); I48.91 Unspecified atrial fibrillation; Z79.01 Long term (current) use of anticoagulants; Z79.899 Other long term (current) drug therapy; Z88.5 Allergy status to narcotic agent; Z88.8 Allergy status to other drugs, medicaments and biological substances
CPT/HCPCS: 70450; 70496; 70498; 71045; 80048; 82550; 84443; 84484; 85025; 85610; 85730; 87486; 87581; 87633; 87798; 93005; 93041; 94760; 96375; 96376; 99285; J2405; J2765; Q9967

== ENCOUNTER → 2022-05-10 | Outpatient (CLI) | payer MEDICARE | LOC: M WHC 10:05 | PROVIDERS: ATTEND Nurse Practitioner Women's Health | DX: Z12.31 Encounter for screening mammogram for malignant neoplasm of breast (principal) ==

== ENCOUNTER 2022-05-13 10:17 | Emergency (ER) | payer MEDICARE ==
[~2022-05-13] VITALS: Ht 165.1 cm; Wt 62.8 kg
[2022-05-13] MEDS ORDERED: VALS1TAB66 PO (10:41)
[2022-05-13] MEDS ORDERED: LEXA5TAB13 PO (10:41)
[2022-05-13 11:52] LABS: BASO % 0.4 % (0.0-1.0); EOS % 0.4 % (0.0-3.0); HEMATOCRIT 34.8 % (36.0-47.0); HEMOGLOBIN 11.4 g/dl (12.0-15.5); LYMPH # 0.7 10^3/uL (1.5-5.0); LYMPH % 12.6 % (24.0-44.0); MEAN CORPUSCULAR HGB CONC 32.8 g/dl (32.0-36.5); MEAN CORPUSCULAR VOLUME 97.8 fl (80.0-96.0); MONO # 0.4 10^3/uL (0.0-0.8); MONO % 6.7 % (2.0-8.0); NEUTROPHILS # 4.5 10^3/uL (1.5-8.5); NEUTROPHILS % 79.7 % (36.0-66.0); PLATELET COUNT, AUTOMATED 239 10^3/uL (150-450); RED BLOOD COUNT 3.56 10^6/uL (4.00-5.40); WHITE BLOOD COUNT 5.6 10^3/uL (4.0-10.0)
[2022-05-13 11:53] LABS: VENOUS BASE EXCESS 4.4 (-2.0-2.0); VENOUS HCO3 30.9 MEQ/L (23.0-27.0); VENOUS O2 SATURATION 83.1 % (60.0-80.0); VENOUS PARTIAL PRESSURE CO2 54.5 mmHg (38.0-50.0); VENOUS PARTIAL PRESSURE O2 47.6 mmHg (30.0-50.0); VENOUS PH 7.371 UNITS (7.330-7.430); VENOUS STANDARD HCO3 28.1 MEQ/L; VENOUS TOTAL CO2 32.5 MEQ/L (24.0-28.0)
[2022-05-13 12:10] LABS: ALBUMIN 3.7 G/DL (3.2-5.2); ALKALINE PHOSPHATASE 64 U/L (46-116); ALT/SGPT 16 U/L (7.0-40); AST/SGOT 28 U/L (<34); BILIRUBIN,DIRECT 0.1 MG/DL (<0.4); BILIRUBIN,TOTAL 0.6 MG/DL (0.3-1.2); BLOOD UREA NITROGEN 17 MG/DL (9-23); CALCIUM LEVEL 9.3 MG/DL (8.3-10.6); CARBON DIOXIDE LEVEL 29 MMOL/L (20-31); CHLORIDE LEVEL 103 MMOL/L (98-107); CK-MB VALUE MASS < 1.0 NG/ML (<3.6); CREATININE FOR GFR 0.94 MG/DL (0.55-1.30); GLOMERULAR FILTRATION RATE > 60.0 (>39); GLUCOSE, FASTING 97 MG/DL (74-106); POTASSIUM SERUM 4.1 MMOL/L (3.5-5.1); SODIUM LEVEL 139 MMOL/L (136-145); TOTAL PROTEIN 6.9 G/DL (5.7-8.2)
[2022-05-13 12:12] LABS: THYROID STIMULATING HORMONE 2.085 uIU/ML (0.55-4.78); THYROXINE (T4) 8.3 UG/DL (4.5-10.9)
[2022-05-13 12:19] LABS: CPK CREATINE PHOSPHOKINASE 96 U/L (34-145); MB/CK RELATIVE INDEX 1.04 (< OR =4)
[2022-05-13] MEDS ORDERED: CARVedilol 6.25 MG TAB PO ONE (14:25)
[2022-05-13] MEDS ORDERED: CORE6.25 PO (14:44)
[2022-05-13 14:54] VITALS: BP 149/76
[2022-05-13 15:15] VITALS: BP 134/83
== END 2022-05-13 15:30 | disposition home or self-care (01) ==
LOC: M ED 10:17
DX: I10 Essential (primary) hypertension (principal); T46.5X5A Adverse effect of other antihypertensive drugs, initial encounter; I48.91 Unspecified atrial fibrillation; E78.5 Hyperlipidemia, unspecified; G47.33 Obstructive sleep apnea (adult) (pediatric); Z79.01 Long term (current) use of anticoagulants; Z79.899 Other long term (current) drug therapy; Z88.5 Allergy status to narcotic agent; Z88.8 Allergy status to other drugs, medicaments and biological substances

== ENCOUNTER → 2022-08-08 | Outpatient (CLI) | payer MEDICARE ==
[~2022-08-08] MED LIST changes: +CORE6.25 PO; +E-Z-PAQUE 96% w/w SUSP 176GM BTL As Ordered ONE; +LEXA1TAB PO; +LEXA5TAB13 PO; +VALS1TAB66 PO
== END ==
LOC: M RAD 08:30
PROVIDERS: ATTEND Internal Medicine Gastroenterology
DX: D50.9 Iron deficiency anemia, unspecified (principal)

== ENCOUNTER → 2022-08-23 | Outpatient (CLI) | payer MEDICARE ==
[~2022-08-23] MED LIST changes: -E-Z-PAQUE 96% w/w SUSP 176GM BTL As Ordered ONE; +FERR325T81 PO
== END ==
LOC: M LABSMTC 10:47
PROVIDERS: ATTEND Anesthesiology
DX: Z01.818 Encounter for other preprocedural examination (principal); Z11.52 Encounter for screening for COVID-19

== ENCOUNTER 2022-08-28 11:28 | Day surgery (SDC) | payer MEDICARE ==
[~2022-08-28] VITALS: Ht 165.1 cm; Wt 58.7 kg
[~2022-08-28 11:28] MED LIST changes: +NS 1,000 ML IV ONE
[2022-08-28] MEDS ORDERED: OSTE1TAB2 PO (13:08)
[2022-08-28] MEDS ORDERED: fentaNYL 100 MCG/2 ML INJECTION As Ordered ONE (14:02)
[2022-08-28] MEDS ORDERED: propofoL 200 MG/20 ML VIAL As Ordered ONE (14:02)
[2022-08-28] MEDS ORDERED: LIDOCAINE 2% 100MG/5ML SDV (FOR ANES.) As Ordered ONE (14:02)
[2022-08-28 15:00] VITALS: BP 177/90
== END 2022-08-28 15:08 | disposition home or self-care (01) ==
LOC: M OPP 11:28
PROVIDERS: ATTEND Internal Medicine Gastroenterology
DX: D12.0 Benign neoplasm of cecum (principal); D12.4 Benign neoplasm of descending colon; K64.8 Other hemorrhoids; K57.30 Diverticulosis of large intestine without perforation or abscess without bleeding; D50.9 Iron deficiency anemia, unspecified; I48.91 Unspecified atrial fibrillation; E78.5 Hyperlipidemia, unspecified; G47.33 Obstructive sleep apnea (adult) (pediatric); Z99.89 Dependence on other enabling machines and devices; Z79.01 Long term (current) use of anticoagulants; Z79.02 Long term (current) use of antithrombotics/antiplatelets; Z79.899 Other long term (current) drug therapy; Z88.5 Allergy status to narcotic agent; Z88.8 Allergy status to other drugs, medicaments and biological substances; Z91.048 Other nonmedicinal substance allergy status; Z86.73 Personal history of transient ischemic attack (TIA), and cerebral infarction without residual deficits; Z85.72 Personal history of non-Hodgkin lymphomas; Z85.3 Personal history of malignant neoplasm of breast; Z80.0 Family history of malignant neoplasm of digestive organs; Z80.3 Family history of malignant neoplasm of breast; Z80.42 Family history of malignant neoplasm of prostate
CPT/HCPCS: 43239; 45385; 88305; J3010

== ENCOUNTER → 2022-09-05 | Outpatient (CLI) | payer MEDICARE ==
[~2022-09-05] MED LIST changes: +GASTROGRAFIN SOLUTION 30ML As Ordered ONE; +ISOVUE-370 76% 100ML VIAL As Ordered ONE; -NS 1,000 ML IV ONE; +OSTE1TAB2 PO
== END ==
LOC: M RAD 13:37
PROVIDERS: ATTEND Internal Medicine Medical Oncology
DX: C82.90 Follicular lymphoma, unspecified, unspecified site (principal)
CPT/HCPCS: 71260; 74177; Q9963; Q9967

== ENCOUNTER → 2022-11-26 | Outpatient (CLI) | payer MEDICARE ==
[~2022-11-26] MED LIST changes: -GASTROGRAFIN SOLUTION 30ML As Ordered ONE; -ISOVUE-370 76% 100ML VIAL As Ordered ONE
[2022-11-26 10:45] LABS: BLOOD UREA NITROGEN 18 MG/DL (9-23); CALCIUM LEVEL 8.5 MG/DL (8.3-10.6); CARBON DIOXIDE LEVEL 30 MMOL/L (20-31); CHLORIDE LEVEL 104 MMOL/L (98-107); CREATININE FOR GFR 0.81 MG/DL (0.55-1.30); GLOMERULAR FILTRATION RATE > 60.0 (>39); GLUCOSE, FASTING 87 MG/DL (74-106); POTASSIUM SERUM 4.1 MMOL/L (3.5-5.1); SODIUM LEVEL 139 MMOL/L (136-145)
== END ==
LOC: M LAB 09:38
PROVIDERS: ATTEND Nurse Practitioner Women's Health
DX: N60.99 Unspecified benign mammary dysplasia of unspecified breast (principal); Z85.3 Personal history of malignant neoplasm of breast; Z91.89 Other specified personal risk factors, not elsewhere classified

== ENCOUNTER → 2022-11-29 | Outpatient (CLI) | payer MEDICARE ==
[~2022-11-29] MED LIST changes: +PROHANCE 279.3MG/ML 15ML VIAL As Ordered ONE
== END ==
LOC: M RAD 10:49
PROVIDERS: ATTEND Nurse Practitioner Women's Health
DX: N60.99 Unspecified benign mammary dysplasia of unspecified breast (principal); Z85.3 Personal history of malignant neoplasm of breast; Z91.89 Other specified personal risk factors, not elsewhere classified
CPT/HCPCS: A9576; C8908

== ENCOUNTER → 2022-12-05 | Outpatient (REF) | payer MEDICARE ==
[~2022-12-05] MED LIST changes: -PROHANCE 279.3MG/ML 15ML VIAL As Ordered ONE
[2022-12-05 13:08] LABS: PERCENT SATURATION 31.3 % (13.2-45.0)
[2022-12-05 13:11] LABS: FERRITIN 576.2 NG/ML (7.3-270.7)
== END ==
LOC: M LAB REF 12:13
PROVIDERS: ATTEND Internal Medicine
DX: D64.9 Anemia, unspecified (principal)

== ENCOUNTER → 2023-05-13 | Outpatient (CLI) | payer MEDICARE | LOC: M WHC 10:17 | PROVIDERS: ATTEND Nurse Practitioner Women's Health | DX: N60.99 Unspecified benign mammary dysplasia of unspecified breast (principal); Z85.3 Personal history of malignant neoplasm of breast; Z91.89 Other specified personal risk factors, not elsewhere classified ==

== ENCOUNTER → 2023-12-03 | Outpatient (CLI) | payer MEDICARE ==
[~2023-12-03] MED LIST changes: +ONDA-282 PO; -ONDA4TAB6 PO; -PROC25SU24 PO; +PROC25SU27 PO; +PROHANCE 279.3MG/ML 15ML VIAL ONE
== END ==
LOC: M PLAIMG 12:36
PROVIDERS: ATTEND Nurse Practitioner Women's Health
DX: N60.99 Unspecified benign mammary dysplasia of unspecified breast (principal); Z91.89 Other specified personal risk factors, not elsewhere classified; Z80.3 Family history of malignant neoplasm of breast
CPT/HCPCS: A9576; C8908

== ENCOUNTER → 2024-03-09 | Outpatient (REF) | payer BC, MEDICARE ==
[~2024-03-09] MED LIST changes: -PROHANCE 279.3MG/ML 15ML VIAL ONE
[2024-03-09 14:46] LABS: PERCENT SATURATION 24.7 % (13.2-45.0)
[2024-03-09 14:49] LABS: FERRITIN 320.8 NG/ML (7.3-270.7)
== END ==
LOC: M LAB REF 12:28
PROVIDERS: ATTEND Internal Medicine
DX: D64.9 Anemia, unspecified (principal)

== ENCOUNTER → 2024-08-04 | Outpatient (CLI) | payer MEDICARE ==
[~2024-08-04] MED LIST changes: +TERB250T91
== END ==
LOC: M WHC 10:39
PROVIDERS: ATTEND Internal Medicine
DX: Z12.31 Encounter for screening mammogram for malignant neoplasm of breast (principal)

== ENCOUNTER → 2024-09-25 | Outpatient (CLI) | payer MEDICARE ==
[~2024-09-25] MED LIST changes: +HYDR-3713 PO; +PRED20TA PO
== END ==
LOC: M PLARAD 12:25
PROVIDERS: ATTEND Orthopaedic Surgery
DX: M18.12 Unilateral primary osteoarthritis of first carpometacarpal joint, left hand (principal); G56.02 Carpal tunnel syndrome, left upper limb

== ENCOUNTER 2024-09-28 12:32 | Emergency (ER) | payer MEDICARE ==
[~2024-09-28] VITALS: Ht 162.6 cm; Wt 62.8 kg
[~2024-09-28 12:32] MED LIST changes: -HYDR-3713 PO; -PRED20TA PO
[2024-09-28] MEDS: ONDANSETRON 4MG ORAL DISINTEGRATING TAB PO ONE (15:04)
[2024-09-28] MEDS: NORCO, ANEXSIA 5/325MG TABLET (HYDROcodone/ACETAMINOPHEN) PO ONE (15:04)
[2024-09-28 15:23] LABS: BASO % 0.4 % (0.0-1.0); EOS % 0.5 % (0.0-3.0); HEMATOCRIT 40.7 % (36.0-47.0); HEMOGLOBIN 13.3 g/dl (12.0-15.5); LYMPH # 1.1 10^3/uL (1.5-5.0); LYMPH % 13.5 % (24.0-44.0); MEAN CORPUSCULAR HEMOGLOBIN 33.1 pg (27.0-33.0); MEAN CORPUSCULAR HGB CONC 32.7 g/dl (32.0-36.5); MEAN CORPUSCULAR VOLUME 101.2 fl (80.0-96.0); MONO # 0.6 10^3/uL (0.0-0.8); MONO % 7.6 % (2.0-8.0); NEUTROPHILS # 6.3 10^3/uL (1.5-8.5); NEUTROPHILS % 77.8 % (36.0-66.0); PLATELET COUNT, AUTOMATED 225 10^3/uL (150-450); RED BLOOD COUNT 4.02 10^6/uL (4.00-5.40); WHITE BLOOD COUNT 8.1 10^3/uL (4.0-10.0)
[2024-09-28 15:35] LABS: ERYTHROCYTE SEDIMENTATION RATE 39 mm/hr (0-30)
[2024-09-28 15:44] LABS: CALCIUM LEVEL 9.4 MG/DL (8.3-10.6); CREATININE FOR GFR 0.81 MG/DL (0.55-1.30); GLOMERULAR FILTRATION RATE 76.6 (>39); POTASSIUM SERUM 4.4 MMOL/L (3.5-5.1)
[2024-09-28 15:46] LABS: URIC ACID 4.3 MG/DL (3.1-7.8)
[2024-09-28] MEDS: predniSONE 20 MG TAB PO ONE (16:28)
[2024-09-28] MEDS ORDERED: HYDR-3713 PO (16:51)
[2024-09-28] MEDS ORDERED: PRED20TA PO (16:51)
[2024-09-28] MEDS ORDERED: ONDA-282 PO (16:51)
[2024-09-28 17:25] VITALS: BP 144/70; TEMP 99; O2SAT 96
== END 2024-09-28 17:25 | disposition home or self-care (01) ==
LOC: M ED 12:32
DX: M24.132 Other articular cartilage disorders, left wrist (principal); M19.032 Primary osteoarthritis, left wrist; Z88.5 Allergy status to narcotic agent; Z88.8 Allergy status to other drugs, medicaments and biological substances; Z91.048 Other nonmedicinal substance allergy status; Z79.1 Long term (current) use of non-steroidal anti-inflammatories (NSAID); Z79.01 Long term (current) use of anticoagulants; Z79.899 Other long term (current) drug therapy
CPT/HCPCS: 36415; 73110; 80048; 84550; 85025; 85652; 93005; 99284; J7512

== ENCOUNTER 2024-12-09 08:22 | Day surgery (SDC) | payer MEDICARE ==
[~2024-12-09] VITALS: Ht 165.1 cm; Wt 63.0 kg
[~2024-12-09 08:22] MED LIST changes: -AMIO200T49 PO; +AMIO200T54 PO; +BIOT1CAP2 PO; +GLYCOPYRROLATE INJ 0.2 MG/ML 2 ML VIAL As Ordered ONE; +HYDR-3713 PO; +KETOROLAC 30 MG/ML 1 ML VIAL As Ordered ONE; +LIDOCAINE 2% 100 MG/5 ML SDV (FOR ANES.) As Ordered ONE; +MIDAZOLAM INJ 2 MG/2 ML VIAL As Ordered ONE; +ONDANSETRON 4MG 2ML VIAL As Ordered ONE; +PRED20TA PO; +dexAMETHasone 4 MG/ML 1 ML VIAL As Ordered ONE
[2024-12-09] MEDS ORDERED: LR 1,000 ML IV SCH ×2 (08:50→10:25)
[2024-12-09] MEDS ORDERED: ONDANSETRON 4MG 2ML VIAL IV PRN (10:25)
[2024-12-09] MEDS ORDERED: HYDROMORPHONE HCL 0.5 MG/0.5 ML SYRINGE IV PRN (10:25)
[2024-12-09 12:52] VITALS: BP 159/85; TEMP 97.4; O2SAT 98
== END 2024-12-09 13:02 | disposition home or self-care (01) ==
LOC: M SDC 08:22
PROVIDERS: ATTEND Orthopaedic Surgery Hand Surgery
DX: G56.02 Carpal tunnel syndrome, left upper limb (principal); I48.91 Unspecified atrial fibrillation; G47.30 Sleep apnea, unspecified; Z91.048 Other nonmedicinal substance allergy status; Z88.5 Allergy status to narcotic agent; Z88.8 Allergy status to other drugs, medicaments and biological substances; Z79.899 Other long term (current) drug therapy
CPT/HCPCS: 29848; J0665; J1100; J1596; J1885; J2250; J2405; J3010

== ENCOUNTER → 2025-01-13 | Outpatient (CLI) | payer MEDICARE ==
[~2025-01-13] MED LIST changes: -GLYCOPYRROLATE INJ 0.2 MG/ML 2 ML VIAL As Ordered ONE; -KETOROLAC 30 MG/ML 1 ML VIAL As Ordered ONE; -LIDOCAINE 2% 100 MG/5 ML SDV (FOR ANES.) As Ordered ONE; -MIDAZOLAM INJ 2 MG/2 ML VIAL As Ordered ONE; -ONDANSETRON 4MG 2ML VIAL As Ordered ONE; +PROHANCE 279.3MG/ML 15ML VIAL ONE; -dexAMETHasone 4 MG/ML 1 ML VIAL As Ordered ONE
== END ==
LOC: M PLAIMG 12:25
DX: Z08 Encounter for follow-up examination after completed treatment for malignant neoplasm (principal); Z85.3 Personal history of malignant neoplasm of breast
CPT/HCPCS: A9576; C8908

== ENCOUNTER → 2025-02-17 | Outpatient (REF) | payer MEDICARE, BC ==
[~2025-02-17] MED LIST changes: -PROHANCE 279.3MG/ML 15ML VIAL ONE
== END ==
LOC: M LAB REF 17:08
PROVIDERS: ATTEND Nurse Practitioner Adult Health
DX: N39.0 Urinary tract infection, site not specified (principal)

== ENCOUNTER 2025-05-10 16:11 | Emergency (ER) | payer MEDICARE ==
[~2025-05-10] VITALS: Ht 165.1 cm; Wt 66.0 kg
[2025-05-10] MEDS ORDERED: ACET-683 PO (16:22)
[2025-05-10 18:23] VITALS: BP 170/92; TEMP 97.2; O2SAT 97
== END 2025-05-10 18:28 | disposition home or self-care (01) ==
LOC: M ED 16:11
DX: S00.03XA Contusion of scalp, initial encounter (principal); Y92.019 Unspecified place in single-family (private) house as the place of occurrence of the external cause; I48.91 Unspecified atrial fibrillation; I10 Essential (primary) hypertension; K21.9 Gastro-esophageal reflux disease without esophagitis; G47.33 Obstructive sleep apnea (adult) (pediatric); F41.9 Anxiety disorder, unspecified; F32.A Depression, unspecified; Z88.5 Allergy status to narcotic agent; Z88.8 Allergy status to other drugs, medicaments and biological substances; Z91.048 Other nonmedicinal substance allergy status; Z79.1 Long term (current) use of non-steroidal anti-inflammatories (NSAID); Z79.01 Long term (current) use of anticoagulants; Z79.899 Other long term (current) drug therapy